=== PATIENT | female | born 1975 | race American Indian/Alaskan Native ===

== ENCOUNTER 2017-04-01 12:53 | Inpatient (IN) | payer MEDICARE, OTHER ==
[2017-04-01 14:06] LABS: Basophils % (Auto) 0.6 % (0.0-1.8); Hematocrit 29.1 % (30.3-42.9); Hemoglobin 9.4 gm/dl (10.1-14.3); Mean Corpuscular HGB Conc 32 % (30-34); Mean Corpuscular Hemoglobin 30 pg (28-32); Mean Corpuscular Volume 92 fl (79-97); Platelet Count 106 K/mm3 (140-440); Red Blood Count 3.18 M/mm3 (3.65-5.03); Red Cell Distribution Width 16.7 % (13.2-15.2); White Blood Count 4.5 K/mm3 (4.5-11.0)
[2017-04-01 14:26] LABS: Albumin 4.1 g/dL (3.9-5); Albumin/Globulin Ratio 1.5 %; Bilirubin,Total 0.4 mg/dL (0.1-1.2); Total Protein 6.8 g/dL (6.3-8.2)
[2017-04-01 14:27] LABS: Chloride 93.7 mmol/L (98-107)
[2017-04-01 14:30] LABS: Calcium 5.9 mg/dL (8.4-10.2); Potassium 6.2 mmol/L (3.6-5.0)
[2017-04-01] MEDS ORDERED: NORCO 5/325 PO ONE (15:54)
--- NOTE | 2017-04-01 16:10 | Emergency Department Report ---
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 Patient just did not feel like going to dialysis and states she's been having problems and just into the cold weather in [place] since moving from [place]. She complains of generalized weakness and fatigue. She also complains severe ongoing pain to right hand with necrosis to several fingers. This has been ongoing since she was admitted to [facility] in October and received vasopressors. Patient states that some of the discoloration of her fingers have actually improved since October but necrosis to others persist. Patient denies shortness of breath or chest pain. Sports Trainer : Dr. Banks - Related Data Allergies Allergy/AdvReac Type Severity Reaction Status Date / Time cefazolin sodium [From Anc] Allergy Anaphylaxis Verified 05/25/15 20:21 morphine Allergy Anaphylaxis Verified 05/25/15 20:21 contrast dye Allergy Anaphylaxis Uncoded 05/25/15 20:21 ED Review of Systems ROS: Stated complaint: FINGER PAIN/FALL Other details as noted in HPI Comment: All other systems reviewed and negative Other: Constitutional: No fevers chills Eyes: No eye pain visual changes ENT: No ear pain or throat pain Neck: Denies pain Respiratory: Denies cough wheezing, mild shortness of breath reported Cardiovascular: Denies chest pain, palpitations, syncope GI: Denies abdominal pain : Patient does not make urine Musculoskeletal: Chronic right hand pain Skin: Denies rash, lesions, erythema Neurologic: Denies headache, numbness, weakness Psychiatric: Denies suicidal ideation, hallucinations ED Past Medical Hx - Past Medical History Hx Hypertension: Yes Hx Renal Disease: Yes (Dialysis MWF) Hx Seizures: Yes - Surgical History Additional Surgical History: Tubal Ligation; L arm Fistula - Social History Smoking Status: Current Every Day Smoker Substance Use Type: Alcohol ED Physical Exam - General Limitations: No Limitations - Other Other exam information: General: No limitations, patient is alert in no acute distress Head exam: Atraumatic, normocephalic Eyes exam: Normal appearance ENT: Moist mucous membrane, normal oropharynx Neck exam: Normal inspection, full range of motion, no meningismus nontender Respiratory exam: Clear to auscultation bilateral, no wheezes, rales, crackles Cardiovascular: Normal rate and rhythm Abdomen: Soft, nondistended, and nontender, with normal bowel sounds, no rebound, or guarding Extremity: Limited range of motion of fingers of right hand. Distal tip necrosis to 3 and 4th finger. Tender to palpation. No warmth or erythema Back: Normal Inspection, full range of motion, no tenderness Neurologic: Alert, oriented x3, cranial nerves intact, no motor or sensory deficit Psychiatric: normal affect, normal mood Skin: Warm, dry, intact ED Course Vital Signs 04/01/17 13:30 Temperature 97.4 F L Pulse Rate 71 Respiratory 16 Rate Blood Pressure 194/107 O2 Sat by Pulse 100 Oximetry - Reevaluation(s) Reevaluation #1: 04/01/17 18:14 Patient given IM and by mouth narcotics for pain to her right hand so that IV assess could be obtained - Consultations Consultation #1: 04/01/17 16:[address] Lugo on-call lens dotter for Dr. Banks. We will arrange for emergent dialysis. ED Medical Decision Making - Lab Data Result diagrams: 04/01/17 13:48 04/01/17 13:48 Lab Results 04/01/17 04/01/17 Range/Units 13:48 13:48 WBC 4.5 (4.5-11.0) K/mm3 RBC 3.18 L (3.65-5.03) M/mm3 Hgb 9.4 L (10.1-14.3) gm/dl Hct 29.1 L (30.3-42.9) % MCV 92 (79-97) fl MCH 30 (28-32) pg MCHC 32 (30-34) % RDW 16.7 H (13.2-15.2) % Plt Count 106 L (140-440) K/mm3 Lymph % (Auto) 23.0 (13.4-35.0) % [place] % (Auto) 8.0 H (0.0-7.3) % Eos % (Auto) 0.0 (0.0-4.3) % Baso % (Auto) 0.6 (0.0-1.8) % Lymph # 1.0 L (1.2-5.4) K/mm3 [place] # 0.4 (0.0-0.8) K/mm3 Eos # 0.0 (0.0-0.4) K/mm3 Baso # 0.0 (0.0-0.1) K/mm3 Seg Neutrophils % 68.4 (40.0-70.0) % Seg Neutrophils # 3.1 (1.8-7.7) K/mm3 Sodium 140 (137-145) mmol/L Potassium 6.2 H* (3.6-5.0) mmol/L Chloride 93.7 L (98-107) mmol/L Carbon Dioxide 11 L (22-30) mmol/L Anion Gap 42 mmol/L BUN 179 H (7-17) mg/dL Creatinine 23.5 H (0.7-1.2) mg/dL Estimated GFR 2 ml/min BUN/Creatinine Ratio 8 % Glucose 81 (65-100) mg/dL Calcium 5.9 L* (8.4-10.2) mg/dL Total Bilirubin 0.40 (0.1-1.2) mg/dL AST 38 (5-40) units/L ALT 48 (7-56) units/L Alkaline Phosphatase 82 (35-129) units/L Total Protein 6.8 (6.3-8.2) g/dL Albumin 4.1 (3.9-5) g/dL Albumin/Globulin Ratio 1.5 % - EKG Data -: EKG Interpreted by Me EKG shows normal: sinus rhythm, axis (63), QRS complexes (89), ST-T waves (no ST elevation NM. No significant peaked T waves) Rate: normal (64) Critical Care Time: No Critical care attestation.: If time is entered above; I have spent that time in minutes in the direct care of this critically ill patient, excluding procedure time. ED Disposition Clinical Impression: ESRD needing dialysis, Hyperkalemia, Uremia, Dialysis patient, noncompliant, Ischemic necrosis of finger, Thrombocytopenia, Anemia Disposition: OP ADMIT IP TO THIS HOSP Is pt being admited?: Yes Condition: Stable Time of Disposition: 16:09 (taylor/hosp)
[2017-04-01] MEDS ORDERED: DILAUDID IM ONE (16:27)
[2017-04-01] MEDS ORDERED: ZOFRAN IM ONE (16:27)
[2017-04-01] MEDS ORDERED: DILAUDID ONE ×2 (16:32→19:17)
[2017-04-01] MEDS ORDERED: ALBURX 25% (ALBUMIN) IV PRN (16:39)
[2017-04-01] MEDS ORDERED: NACL 0.9% 100 ML IV PRN (16:39)
[2017-04-01] MEDS ORDERED: HEPARIN 10,000 UNITS/10 ML IV PRN (16:39)
[2017-04-01] MEDS ORDERED: PROCRIT IV PRN (16:39)
--- NOTE | 2017-04-01 19:01 | History and Physical Report ---
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 Patient just did not feel like going to dialysis and states she's been having problems and just into the cold weather in [place] since moving from [place]. She complains of generalized weakness and fatigue. She also complains severe ongoing pain to right hand with necrosis to several fingers. This has been ongoing since she was admitted to [facility] in October and received vasopressors. Patient states that some of the discoloration of her fingers have actually improved since October but necrosis to others persist. Patient denies shortness of breath or chest pain. Human Resources Coordinator : Dr. Banks Past Medical History Hx Hypertension: Yes Hx Renal Disease: Yes (Dialysis MWF) Hx Seizures: Yes Surgical History Additional Surgical History: Tubal Ligation; L arm Fistula Social History Smoking Status: Current Every Day Smoker Substance Use Type: Alcohol Review of Systems Stated complaint: FINGER PAIN/FALL Other details as noted in HPI Comment: All other systems reviewed and negative Other: Constitutional: No fevers chills Eyes: No eye pain visual changes ENT: No ear pain or throat pain Neck: Denies pain Respiratory: Denies cough wheezing, mild shortness of breath reported Cardiovascular: Denies chest pain, palpitations, syncope GI: Denies abdominal pain : Patient does not make urine Musculoskeletal: Chronic right hand pain Skin: Denies rash, lesions, erythema Neurologic: Denies headache, numbness, weakness Psychiatric: Denies suicidal ideation, hallucinations Medications and Allergies Allergies Allergy/AdvReac Type Severity Reaction Status Date / Time cefazolin sodium [From Anc] Allergy Anaphylaxis Verified 05/25/15 20:21 morphine Allergy Anaphylaxis Verified 05/25/15 20:21 contrast dye Allergy Anaphylaxis Uncoded 05/25/15 20:21 Active Meds: Active Medications Albumin Human (Alburx 25% (Albumin)) 25 gm IV DANIEL PRN PRN Reason: Hypotension Epoetin Onofre (Procrit) 10,000 unit IV DANIEL PRN PRN Reason: hemodialysis Heparin Sodium (Porcine) (Heparin 10,000 Units/10 Ml) 2,000 unit IV DANIEL PRN PRN Reason: hemodialysis Sodium Chloride (Nacl 0.9%) 100 mls @ 999 mls/hr IV DANIEL PRN PRN Reason: Hypotension Review of Systems All systems: negative Exam - Constitutional Vitals: Temp Pulse Resp BP Pulse Ox 97.4 F L 72 17 178/93 100 04/01/17 13:30 04/01/17 18:15 04/01/17 18:52 04/01/17 18:15 04/01/17 18:52 General appearance: Present: mild distress - Cardiovascular Heart rate: 80 Rhythm: regular - Extremities Extremities: abnormal (Rt Fingers ischemic changes) Peripheral Pulses: abnormal Results - Labs CBC & Chem 7: 04/02/17 05:58 04/02/17 05:58 Labs: Laboratory Last Values WBC 4.5 K/mm3 (4.5-11.0) 04/01/17 13:48 RBC 3.18 M/mm3 (3.65-5.03) L 04/01/17 13:48 Hgb 9.4 gm/dl (10.1-14.3) L 04/01/17 13:48 Hct 29.1 % (30.3-42.9) L 04/01/17 13:48 MCV 92 fl (79-97) 04/01/17 13:48 MCH 30 pg (28-32) 04/01/17 13:48 MCHC 32 % (30-34) 04/01/17 13:48 RDW 16.7 % (13.2-15.2) H 04/01/17 13:48 Plt Count 106 K/mm3 (140-440) L 04/01/17 13:48 Lymph % (Auto) 23.0 % (13.4-35.0) 04/01/17 13:48 [place] % (Auto) 8.0 % (0.0-7.3) H 04/01/17 13:48 Eos % (Auto) 0.0 % (0.0-4.3) 04/01/17 13:48 Baso % (Auto) 0.6 % (0.0-1.8) 04/01/17 13:48 Lymph # 1.0 K/mm3 (1.2-5.4) L 04/01/17 13:48 [place] # 0.4 K/mm3 (0.0-0.8) 04/01/17 13:48 Eos # 0.0 K/mm3 (0.0-0.4) 04/01/17 13:48 Baso # 0.0 K/mm3 (0.0-0.1) 04/01/17 13:48 Seg Neutrophils % 68.4 % (40.0-70.0) 04/01/17 13:48 Seg Neutrophils # 3.1 K/mm3 (1.8-7.7) 04/01/17 13:48 Sodium 140 mmol/L (137-145) 04/01/17 13:48 Potassium 6.2 mmol/L (3.6-5.0) H* 04/01/17 13:48 Chloride 93.7 mmol/L (98-107) L 04/01/17 13:48 Carbon Dioxide 11 mmol/L (22-30) L 04/01/17 13:48 Anion Gap 42 mmol/L 04/01/17 13:48 BUN 179 mg/dL (7-17) H 04/01/17 13:48 Creatinine 23.5 mg/dL (0.7-1.2) H 04/01/17 13:48 Estimated GFR 2 ml/min 04/01/17 13:48 BUN/Creatinine Ratio 8 % 04/01/17 13:48 Glucose 81 mg/dL (65-100) 04/01/17 13:48 Calcium 5.9 mg/dL (8.4-10.2) L* 04/01/17 13:48 Total Bilirubin 0.40 mg/dL (0.1-1.2) 04/01/17 13:48 AST 38 units/L (5-40) 04/01/17 13:48 ALT 48 units/L (7-56) 04/01/17 13:48 Alkaline Phosphatase 82 units/L (35-129) 04/01/17 13:48 Total Protein 6.8 g/dL (6.3-8.2) 04/01/17 13:48 Albumin 4.1 g/dL (3.9-5) 04/01/17 13:48 Albumin/Globulin Ratio 1.5 % 04/01/17 13:48 Short CBC 12/09/17 12/10/17 Range/Units 13:48 05:58 WBC 4.5 3.4 L (4.5-11.0) K/mm3 Hgb 9.4 L 8.8 L (10.1-14.3) gm/dl Hct 29.1 L 26.1 L (30.3-42.9) % Plt Count 106 L 110 L (140-440) K/mm3 BMP 04/01/17 04/02/17 13:48 05:58 Sodium 140 142 Potassium 6.2 H* 4.5 D Chloride 93.7 L 95.4 L Carbon Dioxide 11 L 23 D BUN 179 H 73 H Creatinine 23.5 H 12.6 H Glucose 81 75 Calcium 5.9 L* 6.9 L D Liver Function 04/01/17 04/02/17 Range/Units 13:48 05:58 Total Bilirubin 0.40 0.50 (0.1-1.2) mg/dL AST 38 27 (5-40) units/L ALT 48 42 (7-56) units/L Alkaline Phosphatase 82 78 (35-129) units/L Albumin 4.1 3.6 L (3.9-5) g/dL Assessment and Plan Advance Directives: Yes (Full code) VTE prophylaxis?: Chemical Plan of care discussed with patient/family: Yes - Patient Problems (1) Volume overload Current Visit: Yes Status: Acute Qualifiers: Hypervolemia type: unspecified Qualified Code(s): E87.70 - Fluid overload, unspecified Plan to address problem: Needs emergent HD Nephrology consulted Counselled about non compliance (2) Dialysis patient, noncompliant Current Visit: Yes Status: Chronic Plan to address problem: Counselled (3) ESRD needing dialysis Current Visit: Yes Status: Chronic Plan to address problem: HD TIW (4) Ischemic necrosis of finger Current Visit: Yes Status: Chronic Plan to address problem: Sec to vasopressors Pain control (5) HTN (hypertension) Current Visit: Yes Status: Chronic Qualifiers: Hypertension type: essential hypertension Qualified Code(s): I10 - Essential (primary) hypertension Plan to address problem: Add Amlodipine which is a vasodilator (6) Hyperkalemia Current Visit: Yes Status: Acute Plan to address problem: Corrected (7) DVT prophylaxis Current Visit: Yes Status: Acute Plan to address problem: on Heparin
[2017-04-01] MEDS ORDERED: ZOFRAN IV PRN (19:13)
[2017-04-01] MEDS ORDERED: TYLENOL PO PRN (19:13)
[2017-04-01] MEDS ORDERED: MILK OF MAGNESIA PO PRN (19:13)
[2017-04-01] MEDS ORDERED: DULCOLAX PR PRN (19:13)
[2017-04-01] MEDS ORDERED: PERCOCET 5/325 PO PRN (19:13)
[2017-04-01] MEDS ORDERED: NACL 0.9 (PRIMING MACHINE ONLY DIALYSIS) MC ONE (22:01)
--- NOTE | 2017-04-01 23:31 | Consultation ---
History of Present Illness - Reason for Consult Consult date: 04/01/17 end stage renal disease, hyperkalemia - History of Present Illness 41 yo female with End-stage renal disease on dialysis TTS who presented to the ED with generalized weakness. Patient reports nausea, metallic taste and SOB. She last dialyzed appx 11 days ago. She also complains of pain to right hand. She has ischemic changes of digits of right hand following pressors while hospitalized several months ago. She reports pain has been worsening. Past History Past Medical History: dialysis, ESRD, hypertension Past Surgical History: Other (LUIS A AVF; LUIS A AVG) Medications and Allergies Allergies Allergy/AdvReac Type Severity Reaction Status Date / Time cefazolin sodium [From [facility]] Allergy Anaphylaxis Verified 05/25/15 20:21 morphine Allergy Anaphylaxis Verified 05/25/15 20:21 contrast dye Allergy Anaphylaxis Uncoded 05/25/15 20:21 Active Meds: Active Medications Acetaminophen (Tylenol) 650 mg PO Q4H PRN PRN Reason: Pain MILD(1-3)/Fever >100.5/BAUER Albumin Human (Alburx 25% (Albumin)) 25 gm IV DANIEL PRN PRN Reason: Hypotension Bisacodyl (Dulcolax) 10 mg ME QDAY PRN PRN Reason: Constipation unrelieved by MOM Epoetin Onofre (Procrit) 10,000 unit IV DANIEL PRN PRN Reason: hemodialysis Famotidine (Pepcid) 10 mg IV BID ASHLEY Heparin Sodium (Porcine) (Heparin 10,000 Units/10 Ml) 2,000 unit IV DANIEL PRN PRN Reason: hemodialysis Hydromorphone HCl (Dilaudid) 1 mg IM Q3H PRN PRN Reason: Pain , Severe (7-10) Sodium Chloride (Nacl 0.9%) 100 mls @ 999 mls/hr IV DANIEL PRN PRN Reason: Hypotension Magnesium Hydroxide (Milk Of Magnesia) 30 ml PO Q4H PRN PRN Reason: Constipation Ondansetron HCl (Zofran) 4 mg IV Q8H PRN PRN Reason: N/V unrelieved by Reglan Last Admin: 04/01/17 22:40 Dose: 4 mg Oxycodone/Acetaminophen (Percocet 5/325) 1 tab PO Q6H PRN PRN Reason: Pain, Moderate (4-6) Review of Systems All systems: negative Cardiovascular: shortness of breath Musculoskeletal: other (pain in 1st and 2nd digit of right hand) Exam - Vital Signs Vital signs: Vital Signs Temp Pulse Resp BP Pulse Ox 97.4 F L 71 16 194/107 100 04/01/17 13:30 04/01/17 13:30 04/01/17 13:30 04/01/17 13:30 04/01/17 13:30 - General Appearance General appearance: well-developed, well-nourished EENT: ATNC Respiratory: Clear to Ascultation Heart: regular, S1S2 Gastrointestinal: Present: normal. Absent: tenderness, distended Integumentary: other (ischemic changes to 1st finger of right hand) Neurologic: alert and oriented x3 Musculoskeletal: Present: other (trace edema) Psychiatric: cooperative Results - Lab Results 04/01/17 13:48 04/01/17 13:48 Most recent lab results Calcium 5.9 mg/dL (8.4-10.2) L* 04/01/17 13:48 Assessment and Plan Impression: * End stage renal disease on hemodialysis * Uremia * Hyperkalemia * Ischemic changes to 1st and 2nd digit of right hand (following admission of pressors) * Hypertension * Anemia secondary to ESRD Plan: * Hemodialysis today - UF as tolerated * Assess for need for HD tomorrow * Consider vascular surgery consult * Epogen TIW prn * Renal diet
[2017-04-02] MEDS: ZOFRAN IV PRN ×3 (00:21→20:39)
[2017-04-02] MEDS: PEPCID IV SCH ×3 (00:21→22:35)
[2017-04-02] MEDS: DILAUDID IM PRN ×5 (03:11→18:45)
[2017-04-02 06:42] LABS: Basophils % (Auto) 0.6 % (0.0-1.8); Hematocrit 26.1 % (30.3-42.9); Hemoglobin 8.8 gm/dl (10.1-14.3); Mean Corpuscular HGB Conc 34 % (30-34); Mean Corpuscular Hemoglobin 31 pg (28-32); Mean Corpuscular Volume 90 fl (79-97); Platelet Count 110 K/mm3 (140-440); Red Blood Count 2.89 M/mm3 (3.65-5.03); Red Cell Distribution Width 16.3 % (13.2-15.2); White Blood Count 3.4 K/mm3 (4.5-11.0)
[2017-04-02 07:08] LABS: Albumin 3.6 g/dL (3.9-5); Albumin/Globulin Ratio 1.4 %; Bilirubin,Total 0.5 mg/dL (0.1-1.2); Calcium 6.9 mg/dL (8.4-10.2); Chloride 95.4 mmol/L (98-107); Potassium 4.5 mmol/L (3.6-5.0); Total Protein 6.2 g/dL (6.3-8.2)
--- NOTE | 2017-04-02 13:12 | Progress Note ---
Assessment and Plan Impression: * End stage renal disease on hemodialysis * Uremia * Hyperkalemia * Ischemic changes to 1st and 2nd digit of right hand (following admission of pressors) * Hypertension * Anemia secondary to ESRD Plan: * Hemodialysis tomorrow - no acute indication for dialysis today * UF as tolerated * Will consult vascular surgery * Epogen TIW prn * Renal diet Subjective Date of service: 04/02/17 Interval history: Patient c/p hand pain. Objective - Vital Signs Vital signs: Vital Signs - 12hr 04/02/17 04/02/17 04/02/17 03:11 03:19 04:46 Temperature Pulse Rate Respiratory 20 20 Rate Respiratory 20 Rate [ Generalized] Blood Pressure O2 Sat by Pulse Oximetry 04/02/17 04/02/17 04/02/17 05:20 08:15 08:17 Temperature 97.9 F 98.3 F Pulse Rate 69 64 Respiratory 18 20 18 Rate Respiratory Rate [ Generalized] Blood Pressure 170/90 186/86 O2 Sat by Pulse 100 100 Oximetry 04/02/17 04/02/17 04/02/17 08:47 12:07 12:14 Temperature Pulse Rate 66 Respiratory 14 22 Rate Respiratory Rate [ Generalized] Blood Pressure 156/72 O2 Sat by Pulse 100 Oximetry 04/02/17 12:18 Temperature 97.7 F Pulse Rate Respiratory 18 Rate Respiratory Rate [ Generalized] Blood Pressure O2 Sat by Pulse Oximetry - General Appearance General appearance: well-developed, well-nourished EENT: ATNC Respiratory: Present: Clear to Ascultation Cardiology: regular, S1S2 Gastrointestinal: normal, no tenderness, no distended Musculoskeletal: other (no edema; 1st and 2nd digit of right hand w/ ischemic changes) Psychiatric: cooperative - Lab 04/02/17 05:58 04/02/17 05:58 Most recent lab results Calcium 6.9 mg/dL (8.4-10.2) L D 04/02/17 05:58
--- NOTE | 2017-04-02 17:13 | Progress Note ---
Assessment and Plan (1) Volume overload Current Visit: Yes Status: Acute Qualifiers: Hypervolemia type: unspecified Qualified Code(s): E87.70 - Fluid overload, unspecified Plan to address problem: Had HD yesterday Nephrology consulted Counselled about non compliance (2) Dialysis patient, noncompliant Current Visit: Yes Status: Chronic Plan to address problem: Counselled. Nephrology consulted (3) ESRD needing dialysis Current Visit: Yes Status: Chronic Plan to address problem: HD T,Th,S (4) Ischemic necrosis of right 2nd and 3rd finger Current Visit: Yes Status: Chronic Plan to address problem: Sec to vasopressors while admittd to [facility] in11/17/16 - for sepsis and shock Pain control (5) HTN (hypertension) Current Visit: Yes Status: Chronic Qualifiers: Hypertension type: essential hypertension Qualified Code(s): I10 - Essential (primary) hypertension Plan to address problem: Add Amlodipine which is a vasodilator (6) Hyperkalemia Current Visit: Yes Status: Acute Plan to address problem: Corrected (7) Seizure d/o on Keppra (8) DVT prophylaxis Current Visit: Yes Status: Acute Plan to address problem: on Heparin Subjective Date of service: 04/02/17 Principal diagnosis: shortnessof breath from pul. Edema, syncopy and collapse Interval history: No more shortness of breath, still weak Objective - Constitutional Vitals: Vital Signs - 12hr 04/02/17 04/02/17 04/02/17 05:20 08:15 08:17 Temperature 97.9 F 98.3 F Pulse Rate 69 64 Respiratory 18 20 18 Rate Blood Pressure 170/90 186/86 O2 Sat by Pulse 100 100 Oximetry 04/02/17 04/02/17 04/02/17 08:47 12:07 12:14 Temperature Pulse Rate 66 Respiratory 14 22 Rate Blood Pressure 156/72 O2 Sat by Pulse 100 Oximetry 04/02/17 04/02/17 12:18 15:31 Temperature 97.7 F Pulse Rate Respiratory 18 16 Rate Blood Pressure O2 Sat by Pulse Oximetry General appearance: Present: no acute distress, well-nourished - EENT Eyes: PERRL, EOM intact - Neck Neck: supple, normal ROM - Respiratory Respiratory effort: normal Respiratory: bilateral: CTA - Cardiovascular Rhythm: regular Heart Sounds: Present: S1 & S2. Absent: gallop, rub Extremities: pulses intact, No edema, normal color, Full ROM - Gastrointestinal General gastrointestinal: Present: soft, non-tender, non-distended, normal bowel sounds - Genitourinary Female genitourinary: normal - Integumentary Integumentary: clear, warm, dry - Musculoskeletal Musculoskeletal: 1, strength equal bilaterally - Neurologic Neurologic: moves all extremities - Psychiatric Psychiatric: memory intact, appropriate mood/affect, intact judgment & insight - Labs CBC & Chem 7: 04/02/17 05:58 04/02/17 05:58 Labs: Abnormal lab results 04/02/17 04/02/17 Range/Units 05:58 05:58 WBC 3.4 L (4.5-11.0) K/mm3 RBC 2.89 L (3.65-5.03) M/mm3 Hgb 8.8 L (10.1-14.3) gm/dl Hct 26.1 L (30.3-42.9) % RDW 16.3 H (13.2-15.2) % Plt Count 110 L (140-440) K/mm3 [place] % (Auto) 8.1 H (0.0-7.3) % Lymph # 0.7 L (1.2-5.4) K/mm3 Seg Neutrophils % 71.0 H (40.0-70.0) % Chloride 95.4 L (98-107) mmol/L BUN 73 H (7-17) mg/dL Creatinine 12.6 H (0.7-1.2) mg/dL Calcium 6.9 L D (8.4-10.2) mg/dL Total Protein 6.2 L (6.3-8.2) g/dL Albumin 3.6 L (3.9-5) g/dL
[2017-04-02] MEDS: KEPPRA PO SCH (22:35)
[2017-04-02] MEDS: COREG PO SCH (22:35)
[2017-04-02] MEDS: DILAUDID IV PRN (22:36)
[2017-04-02] MEDS: NORVASC PO SCH (23:37)
[2017-04-03] MEDS ORDERED: APRESOLINE IV PRN (03:03)
[2017-04-03] MEDS: DILAUDID IV PRN ×5 (03:23→21:39)
[2017-04-03 06:51] LABS: Basophils % (Auto) 0.9 % (0.0-1.8); Hematocrit 28.6 % (30.3-42.9); Hemoglobin 9.6 gm/dl (10.1-14.3); Mean Corpuscular HGB Conc 33 % (30-34); Mean Corpuscular Hemoglobin 30 pg (28-32); Mean Corpuscular Volume 90 fl (79-97); Platelet Count 101 K/mm3 (140-440); Red Blood Count 3.19 M/mm3 (3.65-5.03); Red Cell Distribution Width 15.9 % (13.2-15.2); White Blood Count 3.5 K/mm3 (4.5-11.0)
[2017-04-03] MEDS: ZOFRAN IV PRN (06:51)
[2017-04-03 07:11] LABS: Albumin 3.8 g/dL (3.9-5); Albumin/Globulin Ratio 1.5 %; Bilirubin,Total 0.4 mg/dL (0.1-1.2); Calcium 6.6 mg/dL (8.4-10.2); Potassium 4.6 mmol/L (3.6-5.0); Total Protein 6.3 g/dL (6.3-8.2)
[2017-04-03] MEDS: KEPPRA PO SCH ×2 (11:16→21:39)
[2017-04-03] MEDS: COREG PO SCH ×2 (11:17→21:39)
[2017-04-03] MEDS: PEPCID IV SCH (11:17)
[2017-04-03] MEDS: NORVASC PO SCH (11:18)
--- NOTE | 2017-04-03 11:30 | Consultation ---
History of Present Illness - Reason for Consult Consult date: 04/03/17 right digit ischemia - History of Present Illness Patient with a history of multiple medical problems including end-stage renal disease on hemodialysis through a left upper arm AV graft. She has not had any access on the right side. She states that the digital ischemia to the distal phalanges of the second and third digits on her right hand began when she was at [facility] in October with sepsis and was given pressors. She is not followed up since that time. Time of examination, the patient has palpable radial pulses. Past History Past Medical History: dialysis, ESRD, hypertension Past Surgical History: Other (LUIS A AVF; LUIS A AVG) Medications and Allergies Allergies Allergy/AdvReac Type Severity Reaction Status Date / Time cefazolin sodium [From Anc] Allergy Anaphylaxis Verified 05/25/15 20:21 morphine Allergy Anaphylaxis Verified 05/25/15 20:21 contrast dye Allergy Anaphylaxis Uncoded 05/25/15 20:21 Home Medications Medication Instructions Recorded Confirmed Last Taken Type Calcium Acetate [Phoslo] 2,001 mg PO TID 04/02/17 04/02/17 Unknown History Carvedilol [Coreg] 25 mg PO BID 04/02/17 04/02/17 Unknown History Ranitidine HCl [Acid Threat Analyst] 75 mg PO QHS 04/02/17 04/02/17 Unknown History Topiramate [Topamax] 100 mg PO BID 04/02/17 04/02/17 Unknown History amLODIPine [Norvasc] 10 mg PO DAILY 04/02/17 04/02/17 Unknown History Active Meds: Active Medications Acetaminophen (Tylenol) 650 mg PO Q4H PRN PRN Reason: Pain MILD(1-3)/Fever >100.5/BAUER Albumin Human (Alburx 25% (Albumin)) 25 gm IV DANIEL PRN PRN Reason: Hypotension Amlodipine Besylate (Norvasc) 10 mg PO QDAY [facility] Last Admin: 04/03/17 11:18 Dose: 10 mg Bisacodyl (Dulcolax) 10 mg OR QDAY PRN PRN Reason: Constipation unrelieved by MOM Carvedilol (Coreg) 25 mg PO BID [facility] Last Admin: 04/03/17 11:17 Dose: 25 mg Epoetin Onofre (Procrit) 10,000 unit IV DANIEL PRN PRN Reason: hemodialysis Famotidine (Pepcid) 10 mg IV BID [facility] Last Admin: 04/03/17 11:17 Dose: 10 mg Heparin Sodium (Porcine) (Heparin 10,000 Units/10 Ml) 2,000 unit IV DANIEL PRN PRN Reason: hemodialysis Hydralazine HCl (Apresoline) 10 mg IV Q4HR PRN PRN Reason: Hypertension Last Admin: 04/03/17 03:24 Dose: 10 mg Hydromorphone HCl (Dilaudid) 1 mg IV Q4H PRN PRN Reason: Pain , Severe (7-10) Last Admin: 04/03/17 07:59 Dose: 1 mg Sodium Chloride (Nacl 0.9%) 100 mls @ 999 mls/hr IV DANIEL PRN PRN Reason: Hypotension Levetiracetam (Keppra) 500 mg PO BID [facility] Last Admin: 04/03/17 11:16 Dose: 500 mg Magnesium Hydroxide (Milk Of Magnesia) 30 ml PO Q4H PRN PRN Reason: Constipation Ondansetron HCl (Zofran) 4 mg IV Q4H PRN PRN Reason: N/V unrelieved by Reglan Last Admin: 04/03/17 06:51 Dose: 4 mg Oxycodone/Acetaminophen (Percocet 5/325) 1 tab PO Q6H PRN PRN Reason: Pain, Moderate (4-6) Review of Systems All systems: negative Exam - Constitutional Vitals: Temp Pulse Resp BP Pulse Ox 97.5 F L 72 20 145/72 99 04/03/17 05:18 04/03/17 05:18 04/03/17 05:18 04/03/17 05:18 04/03/17 05:18 General appearance: Present: no acute distress - EENT Eyes: Present: PERRL ENT: hearing intact - Neck Neck: Present: supple, normal ROM - Respiratory Respiratory effort: normal - Extremities Extremities: pulses intact Extremity abnormal: other (LUE AVG) - Abdominal General gastrointestinal: Present: deferred Female genitourinary: Present: deferred - Rectal Rectal Exam: deferred - Integumentary Integumentary: Present: clear - Musculoskeletal Musculoskeletal: right sided weakness (secondary to digital pain) - Psychiatric Psychiatric: appropriate mood/affect, cooperative Results - Labs CBC & Chem 7: 04/03/17 06:24 04/03/17 06:24 Labs: Abnormal lab results 04/03/17 04/03/17 Range/Units 06:24 06:24 WBC 3.5 L (4.5-11.0) K/mm3 RBC 3.19 L (3.65-5.03) M/mm3 Hgb 9.6 L (10.1-14.3) gm/dl Hct 28.6 L (30.3-42.9) % RDW 15.9 H (13.2-15.2) % Plt Count 101 L (140-440) K/mm3 [place] % (Auto) 11.1 H (0.0-7.3) % Lymph # 1.0 L (1.2-5.4) K/mm3 Chloride 96.0 L (98-107) mmol/L BUN 85 H (7-17) mg/dL Creatinine 15.5 H (0.7-1.2) mg/dL Calcium 6.6 L (8.4-10.2) mg/dL Albumin 3.8 L (3.9-5) g/dL Assessment and Plan Patient with ischemic changes to the distal phalanges of the second and third digits on her right hand. We'll further evaluate with arterial ultrasound. The patient will need local wound care.
--- NOTE | 2017-04-03 11:56 | Progress Note ---
Subjective Principal diagnosis: shortnessof breath from pul. Edema, syncopy and collapse Interval history: Patient was seen today for follow-up, on many renal related issues Patient currently denies having any symptoms of chest pain pressure shortness of breath she does complain of pain and tenderness on the fingertip she does not have any history suggestive of lupus or raynauds patient stated that fingers started changing color when she was put on vasopressors remotely Better aware about renal related issues Interdisciplinary notes were reviewed Vitals labs intake and output medications were reviewed from today Allergies: Reviewed Social history: Reviewed Family history: Reviewed Physical examination HEENT: Oral mucosa moist no pharyngeal erythema Neck: Supple no JVD Chest: Clear to auscultation no crackles rales or wheezes Heart: Regular rate and rhythm S1-S2 heard no S3-S4 Abdomen: Soft nontender no renal bruit no CVA tenderness no suprapubic fullness Extremity: Mild edema dry skin no peripheral cyanosis pulses palpable, fingertips are necrotic mostly involving second and third digit Neurological: Alert awake Musculoskeletal: No joint effusion noted Assessment and plan end-stage renal disease: Patient is currently on hemodialysis Monday and Monday anemia and end-stage renal disease: To monitor and follow erythropoietin with hemodialysis pancytopenia leg picture patient may benefit from hematology evaluation pls considered Ischemic hand patient is currently being followed by vascular discussed with Dr. Albarran Admitted with uremia and hyperkalemia currently doing much better Consider high-protein diet Monitor dialysis related labs Renal plan of care was discussed with patient Labs were discussed with patient explained and simple [place] does have good understanding off renal related issues, Will continue to follow and make recommendation from renal standpoint Objective - Vital Signs Vital signs: Vital Signs - 12hr 04/03/17 04/03/17 04/03/17 00:25 02:48 02:51 Temperature 97.6 F 98.4 F Pulse Rate 66 60 Respiratory 20 20 Rate Blood Pressure 194/89 170/86 O2 Sat by Pulse 98 100 Oximetry 04/03/17 04/03/17 04/03/17 03:23 03:24 04:04 Temperature Pulse Rate 60 70 Respiratory 20 Rate Blood Pressure 170/86 O2 Sat by Pulse Oximetry 04/03/17 05:18 Temperature 97.5 F L Pulse Rate 72 Respiratory 20 Rate Blood Pressure 145/72 O2 Sat by Pulse 99 Oximetry - Lab 04/03/17 06:24 04/03/17 06:24 Most recent lab results Calcium 6.6 mg/dL (8.4-10.2) L 04/03/17 06:24
--- NOTE | 2017-04-03 20:24 | Progress Note ---
Assessment and Plan (1) Volume overload Current Visit: Yes Status: Acute Qualifiers: Hypervolemia type: unspecified Qualified Code(s): E87.70 - Fluid overload, unspecified Plan to address problem: Had HD yesterday Nephrology consulted Counselled about non compliance (2) Dialysis patient, noncompliant Current Visit: Yes Status: Chronic Plan to address problem: Counselled. 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 Vascular surgical consult obtained. For arteial doppler. Local wound care (5) HTN (hypertension) Current Visit: Yes Status: Chronic Qualifiers: Hypertension type: essential hypertension Qualified Code(s): I10 - Essential (primary) hypertension Plan to address problem: Add Amlodipine (6) Hyperkalemia Current Visit: Yes Status: Acute Plan to address problem: Corrected (7) Seizure d/o on Keppra (8) DVT prophylaxis Current Visit: Yes Status: Acute Plan to address problem: on Heparin Subjective Date of service: 04/03/17 Principal diagnosis: shortnessof breath from pul. Edema, syncopy and collapse Interval history: No more shortness of breath, still weak and having pain in the Objective - Constitutional Vitals: Vital Signs - 12hr 04/03/17 04/03/17 04/03/17 12:17 12:59 17:19 Temperature 98.5 F 97.8 F Pulse Rate 77 59 L 59 L Respiratory 18 18 Rate Blood Pressure 154/80 137/71 [Left] O2 Sat by Pulse 100 100 Oximetry General appearance: Present: no acute distress, well-nourished - EENT Eyes: PERRL, EOM intact Ears: bilateral: normal - Neck Neck: supple, normal ROM - Respiratory Respiratory effort: normal Respiratory: bilateral: CTA - Cardiovascular Rhythm: regular Heart Sounds: Present: S1 & S2. Absent: gallop, rub Extremities: pulses intact, No edema, normal color, Full ROM - Gastrointestinal General gastrointestinal: Present: soft, non-tender, non-distended, normal bowel sounds - Integumentary Integumentary: clear, warm, dry - Musculoskeletal Musculoskeletal: 1, strength equal bilaterally - Neurologic Neurologic: moves all extremities - Psychiatric Psychiatric: memory intact, appropriate mood/affect, intact judgment & insight - Labs CBC & Chem 7: 04/03/17 06:24 04/03/17 06:24 Labs: Abnormal lab results 04/03/17 04/03/17 Range/Units 06:24 06:24 WBC 3.5 L (4.5-11.0) K/mm3 RBC 3.19 L (3.65-5.03) M/mm3 Hgb 9.6 L (10.1-14.3) gm/dl Hct 28.6 L (30.3-42.9) % RDW 15.9 H (13.2-15.2) % Plt Count 101 L (140-440) K/mm3 [place] % (Auto) 11.1 H (0.0-7.3) % Lymph # 1.0 L (1.2-5.4) K/mm3 Chloride 96.0 L (98-107) mmol/L BUN 85 H (7-17) mg/dL Creatinine 15.5 H (0.7-1.2) mg/dL Calcium 6.6 L (8.4-10.2) mg/dL Albumin 3.8 L (3.9-5) g/dL
[2017-04-03] MEDS: PEPCID PO SCH (21:39)
[2017-04-04] MEDS: DILAUDID IV PRN ×5 (01:43→22:37)
[2017-04-04 06:44] LABS: Basophils % (Auto) 0.7 % (0.0-1.8); Hematocrit 27.6 % (30.3-42.9); Hemoglobin 9.1 gm/dl (10.1-14.3); Mean Corpuscular HGB Conc 33 % (30-34); Mean Corpuscular Hemoglobin 30 pg (28-32); Mean Corpuscular Volume 90 fl (79-97); Platelet Count 102 K/mm3 (140-440); Red Blood Count 3.07 M/mm3 (3.65-5.03); Red Cell Distribution Width 15.9 % (13.2-15.2); White Blood Count 3.7 K/mm3 (4.5-11.0)
[2017-04-04 07:04] LABS: Albumin 3.8 g/dL (3.9-5); Albumin/Globulin Ratio 1.5 %; Bilirubin,Total 0.4 mg/dL (0.1-1.2); Chloride 91.9 mmol/L (98-107); Potassium 4.5 mmol/L (3.6-5.0); Total Protein 6.4 g/dL (6.3-8.2)
--- NOTE | 2017-04-04 08:06 | Vascular Lab Report ---
RIGHT UPPER EXTREMITY ARTERIAL DUPLEX: REASON FOR EXAM: Necrotic digits. COMMENTS ON THE RIGHT: Triphasic waveforms are seen proximally. Triphasic waveforms are seen distally. No significant velocity gradients are identified. No significant plaque is identified. Findings are consistent with normal perfusion. COMMENTS ON THE LEFT: Triphasic waveforms are seen distally. IMPRESSION: RIGHT: Essentially normal arterial flow.
--- NOTE | 2017-04-04 10:10 | Progress Note ---
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 Patient just did not feel like going to dialysis and states she's been having problems and just into the cold weather in [place] since moving from [place]. She complains of generalized weakness and fatigue. She also complains severe ongoing pain to right hand with necrosis to several fingers. This has been ongoing since she was admitted to [facility] in October and received vasopressors. Patient states that some of the discoloration of her fingers have actually improved since October but necrosis to others persist. Patient denies shortness of breath or chest pain. Hospice Art Therapist : Dr. Banks (1) Volume overload Current Visit: Yes Status: Acute Qualifiers: Hypervolemia type: unspecified Qualified Code(s): E87.70 - Fluid overload, unspecified Plan to address problem: Had HD yesterday Nephrology consulted-resume dialysis. Counseling provided to the patient about compliance. Counselled about non compliance (2) Dialysis patient, noncompliant Current Visit: Yes Status: Chronic Plan to address problem: Counselled. 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 Vascular surgical consult obtained. For arteial doppler. Local wound care Discussed with interventional radiologist (5) HTN (hypertension) Current Visit: Yes Status: Chronic Qualifiers: Hypertension type: essential hypertension Qualified Code(s): I10 - Essential (primary) hypertension Plan to address problem: Add Amlodipine (6) Hyperkalemia Current Visit: Yes Status: Acute Plan to address problem: Corrected (7) Seizure d/o on Keppra (8) av graft malfunction Plan for revision in the AM. (9)DVT prophylaxis Current Visit: Yes Status: Acute Plan to address problem: on Heparin History Interval history: Patient seen and examined in no acute distress still complains of finger necrosis. Discussed case with vascular dementia the patient also complained of left axillary pulsating lesion, which will be evaluated. Otherwise no fever nausea vomiting diarrhea. Hospitalist Physical - Physical exam Narrative exam: VITAL SIGNS: Reviewed. GENERAL: The patient appeared well nourished and normally developed. Vital signs as documented. HEAD: No signs of head trauma. EYES: Pupils are equal. Extraocular motions intact. EARS: Hearing grossly intact. MOUTH: Oropharynx is normal. NECK: No adenopathy, no JVD. CHEST: Chest with clear breath sounds bilaterally. No wheezes, rales, or rhonchi. CARDIAC: Regular rate and rhythm. S1 and S2, without murmurs, gallops, or rubs. VASCULAR: No Edema. Peripheral pulses normal and equal in all extremities. ABDOMEN: Soft, without detectable tenderness. No sign of distention. No rebound or guarding, and no masses palpated. Bowel Sounds normal. MUSCULOSKELETAL: Good range of motion of all major joints. Extremities without clubbing, or edema. Necrotic second and third finger of the right. With cyanosis. NEUROLOGIC EXAM: Alert and oriented x 3. No focal sensory or strength deficits. Speech normal. Follows commands. PSYCHIATRIC: Mood normal. SKIN: Second and third fingers on the right with black eschar, necrotic in nature, left upper arm AV graft appears thrombosed the patient has patent left upper arm graft with good chills. - Constitutional Vitals: Temp Pulse Resp BP Pulse Ox 98.6 F 60 20 141/72 100 04/04/17 08:31 04/04/17 08:31 04/04/17 08:31 04/04/17 08:31 04/04/17 08:31 General appearance: Present: no acute distress, well-nourished Results - Labs CBC & Chem 7: 04/05/17 04:00 04/05/17 04:00 Labs: Laboratory Last Values WBC 3.7 K/mm3 (4.5-11.0) L 04/04/17 06:02 RBC 3.07 M/mm3 (3.65-5.03) L 04/04/17 06:02 Hgb 9.1 gm/dl (10.1-14.3) L 04/04/17 06:02 Hct 27.6 % (30.3-42.9) L 04/04/17 06:02 MCV 90 fl (79-97) 04/04/17 06:02 MCH 30 pg (28-32) 04/04/17 06:02 MCHC 33 % (30-34) 04/04/17 06:02 RDW 15.9 % (13.2-15.2) H 04/04/17 06:02 Plt Count 102 K/mm3 (140-440) L 04/04/17 06:02 Lymph % (Auto) 33.9 % (13.4-35.0) 04/04/17 06:02 [place] % (Auto) 12.2 % (0.0-7.3) H 04/04/17 06:02 Eos % (Auto) 0.0 % (0.0-4.3) 04/04/17 06:02 Baso % (Auto) 0.7 % (0.0-1.8) 04/04/17 06:02 Lymph # 1.3 K/mm3 (1.2-5.4) 04/04/17 06:02 [place] # 0.4 K/mm3 (0.0-0.8) 04/04/17 06:02 Eos # 0.0 K/mm3 (0.0-0.4) 04/04/17 06:02 Baso # 0.0 K/mm3 (0.0-0.1) 04/04/17 06:02 Seg Neutrophils % 53.2 % (40.0-70.0) 04/04/17 06:02 Seg Neutrophils # 2.0 K/mm3 (1.8-7.7) 04/04/17 06:02 Sodium 139 mmol/L (137-145) 04/04/17 06:02 Potassium 4.5 mmol/L (3.6-5.0) 04/04/17 06:02 Chloride 91.9 mmol/L (98-107) L 04/04/17 06:02 Carbon Dioxide 21 mmol/L (22-30) L 04/04/17 06:02 Anion Gap 31 mmol/L 04/04/17 06:02 BUN 95 mg/dL (7-17) H 04/04/17 06:02 Creatinine 17.5 mg/dL (0.7-1.2) H 04/04/17 06:02 Estimated GFR 3 ml/min 04/04/17 06:02 BUN/Creatinine Ratio 5 % 04/04/17 06:02 Glucose 96 mg/dL (65-100) 04/04/17 06:02 Hemoglobin A1c 4.7 % (4-6) 04/01/17 13:48 Calcium 6.0 mg/dL (8.4-10.2) L 04/04/17 06:02 Total Bilirubin 0.40 mg/dL (0.1-1.2) 04/04/17 06:02 AST 28 units/L (5-40) 04/04/17 06:02 ALT 39 units/L (7-56) 04/04/17 06:02 Alkaline Phosphatase 78 units/L (35-129) 04/04/17 06:02 Total Protein 6.4 g/dL (6.3-8.2) 04/04/17 06:02 Albumin 3.8 g/dL (3.9-5) L 04/04/17 06:02 Albumin/Globulin Ratio 1.5 % 04/04/17 06:02 - Imaging and Cardiology Venous US: pending
[2017-04-04] MEDS: KEPPRA PO SCH ×2 (11:17→22:37)
[2017-04-04] MEDS: PEPCID PO SCH ×2 (11:17→22:37)
[2017-04-04] MEDS: COREG PO SCH ×2 (11:17→22:37)
[2017-04-04] MEDS: NORVASC PO SCH (11:17)
--- NOTE | 2017-04-04 13:53 | Progress Note ---
Assessment and Plan Arterial study to RUE suggest he has essentially normal flow. Recommend LWC for the digits to her right hand. She states the HD nurses are having difficulty sticking the upper portion of her LUE AVG, and reports discomfort in the axilla. Will schedule her for fistulagram for tomorrow. The R,B,and A were discussed. Pt has had previous fistulagrams and stated understanding and agrees to proceed. - Patient Problems (1) AV graft malfunction Current Visit: Yes Status: Acute Subjective Date of service: 04/04/17 Principal diagnosis: shortnessof breath from pul. Edema, syncopy and collapse Interval history: Pt awake and alert. She reports that the HD nurse has had difficulty accessing the avg in the upper portion of her left arm. She also complains of discomfort in the left axilla (new). She has a pulsatile mass that has been present for ~2 years. Objective - Constitutional Vitals: Vital Signs - 12hr 04/04/17 04/04/17 04/04/17 05:16 08:31 10:00 Temperature 98.1 F 98.6 F Pulse Rate 66 60 Respiratory 20 20 20 Rate Blood Pressure 157/79 141/72 O2 Sat by Pulse 100 100 Oximetry 04/04/17 04/04/17 11:17 12:12 Temperature Pulse Rate 60 Respiratory Rate Blood Pressure 141/72 128/67 O2 Sat by Pulse 100 Oximetry General appearance: Present: no acute distress - EENT Eyes: EOM intact ENT: hearing intact - Neck Neck: supple - Respiratory Respiratory effort: normal (unlabored at rest) Extremities: no ischemia, normal temperature, abnormal Extremity abnormal: black (dried blackened eschar to 2nd and 3rd fingers to the right hand. Thrombosed avf the left upper arm. Patent avg Left upper arm good thrill proximally and pulsatile distally. Moderate sized pulsatile mass in the L axilla. Scattered varicose veins over the chest) - Neurologic Neurologic: no focal deficits - Psychiatric Psychiatric: appropriate mood/affect, intact judgment & insight, cooperative - Labs CBC & Chem 7: 04/04/17 06:02 04/04/17 06:02 Labs: Abnormal lab results 04/04/17 04/04/17 Range/Units 06:02 06:02 WBC 3.7 L (4.5-11.0) K/mm3 RBC 3.07 L (3.65-5.03) M/mm3 Hgb 9.1 L (10.1-14.3) gm/dl Hct 27.6 L (30.3-42.9) % RDW 15.9 H (13.2-15.2) % Plt Count 102 L (140-440) K/mm3 [place] % (Auto) 12.2 H (0.0-7.3) % Chloride 91.9 L (98-107) mmol/L Carbon Dioxide 21 L (22-30) mmol/L BUN 95 H (7-17) mg/dL Creatinine 17.5 H (0.7-1.2) mg/dL Calcium 6.0 L (8.4-10.2) mg/dL Albumin 3.8 L (3.9-5) g/dL
--- NOTE | 2017-04-04 15:57 | Progress Note ---
Subjective Principal diagnosis: shortnessof breath from pul. Edema, syncopy and collapse Interval history: Patient was seen today for follow-up, on many renal related issues she still continues to complain of some pain in the digital ischemic area Interdisciplinary notes were reviewed Vitals labs intake and output medications were reviewed from today Allergies: Reviewed Social history: Reviewed Family history: Reviewed Physical examination HEENT: Oral mucosa moist no pharyngeal erythema Neck: Supple no JVD Chest: Clear to auscultation no crackles rales or wheezes Heart: Regular rate and rhythm S1-S2 heard no S3-S4 Abdomen: Soft nontender no renal bruit no CVA tenderness no suprapubic fullness Extremity: Mild edema dry skin no peripheral cyanosis pulses palpable, fingertips are necrotic mostly involving second and third digit Neurological: Alert awake Musculoskeletal: No joint effusion noted Assessment and plan end-stage renal disease: while in the hospital she will continue to dialyze on Monday schedule anemia and end-stage renal disease: To monitor and follow erythropoietin with hemodialysis pancytopenia leg picture patient may benefit from hematology evaluation pls considered Ischemic hand , arterial blood flow is good according to vascular surgery notes hyperkalemia: Pleasant upon admission currently improved Admitted with uremia and hyperkalemia currently doing much better Consider high-protein diet, due to dialysis status Monitor dialysis related labs including phosphorus and PTH periodically Renal plan of care was discussed with patient Labs were discussed with patient explained and simple [place] does have good understanding off renal related issues, Will continue to follow and make recommendation from renal standpoint Objective - Vital Signs Vital signs: Vital Signs - 12hr 04/04/17 04/04/17 04/04/17 05:16 08:31 10:00 Temperature 98.1 F 98.6 F Pulse Rate 66 60 Respiratory 20 20 20 Rate Blood Pressure 157/79 141/72 O2 Sat by Pulse 100 100 Oximetry 04/04/17 04/04/17 11:17 12:12 Temperature Pulse Rate 60 Respiratory Rate Blood Pressure 141/72 128/67 O2 Sat by Pulse 100 Oximetry - Lab 04/04/17 06:02 04/04/17 06:02 Most recent lab results Calcium 6.0 mg/dL (8.4-10.2) L 04/04/17 06:02
[2017-04-04] MEDS ORDERED: NACL 0.9 (PRIMING MACHINE ONLY DIALYSIS) MC ONE (18:29)
[2017-04-05] MEDS: DILAUDID IV PRN ×2 (02:57→07:09)
[2017-04-05 06:17] LABS: Hemoglobin 9.3 gm/dl (10.1-14.3); Mean Corpuscular HGB Conc 34 % (30-34); Mean Corpuscular Hemoglobin 31 pg (28-32); Mean Corpuscular Volume 89 fl (79-97); Platelet Count 96 K/mm3 (140-440); Red Blood Count 3.04 M/mm3 (3.65-5.03); Red Cell Distribution Width 15.6 % (13.2-15.2); White Blood Count 2.7 K/mm3 (4.5-11.0)
[2017-04-05 06:44] LABS: Albumin 3.5 g/dL (3.9-5); Albumin/Globulin Ratio 1.5 %; Bilirubin,Total 0.4 mg/dL (0.1-1.2); Calcium 7.7 mg/dL (8.4-10.2); Chloride 94.3 mmol/L (98-107); Potassium 3.9 mmol/L (3.6-5.0); Total Protein 5.9 g/dL (6.3-8.2)
[2017-04-05 07:18] LABS: Blastocytes % (Manual) 0 %; Eosinophils % (Manual) 0 % (0.0-4.3)
[2017-04-05 07:19] LABS: Anisocytosis 1+; Elliptocytes Few; Ovalocytes 1+
[2017-04-05 07:20] LABS: Diff Status Complete; Microcytosis 1+; Platelet Estimate Appears Decreased; Stomatocytes 1+
[2017-04-05] MEDS ORDERED: BENADRYL PO NR (08:00)
[2017-04-05] MEDS ORDERED: ANCEF/STERILE WATER 2 GM/20 ML 2 GM/20 ML SYRINGE IV NR (08:00)
[2017-04-05 08:02] VITALS: BP 170/80
[2017-04-05] MEDS ORDERED: HEPARIN/NS 5000 UNIT/500ML(CATH LAB) 1,000 ML IR ONE (08:27)
[2017-04-05] MEDS ORDERED: HEPARIN 10,000 UNITS/10 ML ONE (08:27)
[2017-04-05] MEDS ORDERED: BENADRYL ONE (08:28)
[2017-04-05] MEDS ORDERED: XYLOCAINE 2% INFILTRATI ONE (08:28)
[2017-04-05] MEDS ORDERED: NACL 0.9% 250ML 250 ML ONE (08:28)
[2017-04-05] MEDS ORDERED: VERSED ONE (08:42)
[2017-04-05] MEDS: SUBLIMAZE ONE ×2 (08:58→09:45)
--- NOTE | 2017-04-05 09:40 | Progress Note ---
Subjective Principal diagnosis: shortnessof breath from pul. Edema, syncopy and collapse Interval history: Patient was seen today for follow-up, on many renal related issues Patient did receive hemodialysis treatment yesterday and tolerated fairly well Vitals labs intake and output medications were reviewed from today Allergies: Reviewed Social history: Reviewed Family history: Reviewed Physical examination HEENT: Oral mucosa moist no pharyngeal erythema Neck: Supple no JVD Chest: Clear to auscultation no crackles rales or wheezes Heart: Regular rate and rhythm S1-S2 heard no S3-S4 Abdomen: Soft nontender no renal bruit no CVA tenderness no suprapubic fullness Extremity: Mild edema dry skin no peripheral cyanosis pulses palpable, fingertips are necrotic mostly involving second and third digit Neurological: Alert awake Musculoskeletal: No joint effusion noted Assessment and plan end-stage renal disease: while in the hospital she will continue to dialyze on Monday schedule anemia and end-stage renal disease: To monitor and follow erythropoietin with hemodialysis pancytopenia leg picture patient may benefit from hematology evaluation pls considered, as this is important for her Ischemic hand , arterial blood flow is good according to vascular surgery notes hyperkalemia: Pleasant upon admission currently improved Admitted with uremia and hyperkalemia currently doing much better counseled and educated already Consider high-protein diet, due to dialysis status Monitor dialysis related labs including phosphorus and PTH periodically And has received adequate education regarding end-stage renal disease care Will continue to follow and make recommendation from renal standpoint Objective - Vital Signs Vital signs: Vital Signs - 12hr 04/04/17 04/04/17 04/04/17 22:37 23:27 23:32 Temperature 98.6 F Pulse Rate 69 70 Respiratory 18 Rate Blood Pressure 194/87 Blood Pressure 192/92 [Left] Blood Pressure [Right] O2 Sat by Pulse 100 100 Oximetry 04/04/17 04/05/17 04/05/17 23:46 02:55 04:12 Temperature 98.7 F Pulse Rate 63 65 Respiratory 18 Rate Blood Pressure 167/85 Blood Pressure 164/77 [Left] Blood Pressure [Right] O2 Sat by Pulse 96 99 Oximetry 04/05/17 07:58 Temperature 97.9 F Pulse Rate 57 L Respiratory 16 Rate Blood Pressure Blood Pressure [Left] Blood Pressure 170/80 [Right] O2 Sat by Pulse 99 Oximetry - Lab 04/05/17 04:00 04/05/17 04:00 Most recent lab results Calcium 7.7 mg/dL (8.4-10.2) L D 04/05/17 04:00
[2017-04-05] MEDS: COREG PO SCH (10:13)
[2017-04-05] MEDS: KEPPRA PO SCH (10:13)
[2017-04-05] MEDS: PEPCID PO SCH (10:14)
[2017-04-05] MEDS: NORVASC PO SCH (10:14)
--- NOTE | 2017-04-05 10:26 | Post Operative Note ---
Pre-op diagnosis: esrd Post-op diagnosis: same Findings: Venous anastamotic and central venous stenoses Procedure: fistualgram and balloon angioplasty Anesthesia: local Surgeon: CRYSTAL JORGE Estimated blood loss: none Pathology: none Condition: stable Disposition: floor
--- NOTE | 2017-04-05 11:53 | Discharge Summary ---
Providers - Providers Date of Admission: 04/01/17 18:45 Attending physician: JULIA ALEX MD 04/01/17 16:45 Consult to Physician [CONS] Urgent Consulting Provider: DOROTA GÓMEZ Reason For Exam: esrd needing dialysis Notified:: maren 04/02/17 14:56 Consult to Physician [CONS] Routine Consulting Provider: MOISES JUNIOR Reason For Exam: Ischemic digits of right hand Place consult to:: Dr. 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 Patient just did not feel like going to dialysis and states she's been having problems and just into the cold weather in [place] since moving from [place]. She complains of generalized weakness and fatigue. She also complains severe ongoing pain to right hand with necrosis to several fingers. This has been ongoing since she was admitted to [facility] in October and received vasopressors. Patient states that some of the discoloration of her fingers have actually improved since October but necrosis to others persist. Patient denies shortness of breath or chest pain. Switch Cleaner : Dr. Banks. Patient on admission was started on dialysis with counselor noncompliance provided. The patient was also seen by vascular recommendation that ischemic necrosis noted on the second third finger of the right will likely self medicate. The patient did have a complaint of pulsating axillary lesion that has been ongoing for 2 years and proceeded to have a fistulogram with interventional radiologist. I will follow-up with them for further evaluation. We did advise some pain medication and also very minimal nitroglycerin cream on fingers to assist with pain control. I do recommend close follow-up with wood preserving plant laborer compliance with dialysis and also follow-up with vascular physicians. She is clinically stable at this point for discharge. 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 GENERAL: The patient appeared well nourished and normally developed. Vital signs as documented. HEAD: No signs of head trauma. EYES: Pupils are equal. Extraocular motions intact. EARS: Hearing grossly intact. MOUTH: Oropharynx is normal. NECK: No adenopathy, no JVD. CHEST: Chest with clear breath sounds bilaterally. No wheezes, rales, or rhonchi. CARDIAC: Regular rate and rhythm. S1 and S2, without murmurs, gallops, or rubs. VASCULAR: No Edema. Peripheral pulses normal and equal in all extremities. ABDOMEN: Soft, without detectable tenderness. No sign of distention. No rebound or guarding, and no masses palpated. Bowel Sounds normal. MUSCULOSKELETAL: Good range of motion of all major joints. Extremities without clubbing, or edema. Necrotic second and third finger of the right. With cyanosis. NEUROLOGIC EXAM: Alert and oriented x 3. No focal sensory or strength deficits. Speech normal. Follows commands. PSYCHIATRIC: Mood normal. SKIN: Second and third fingers on the right with black eschar, necrotic in nature, left upper arm AV graft appears thrombosed the patient has patent left upper arm graft with good chills. - Constitutional Vitals: Temp Pulse Resp BP Pulse Ox 97.9 F 57 L 16 170/80 99 04/05/17 07:58 04/05/17 07:58 04/05/17 07:58 04/05/17 07:58 04/05/17 07:58 Plan Activity: advance as tolerated Diet: renal Special Instructions: restrict fluid intake to, record daily weights, record daily BP diary Follow up with: BON ARMENTA MD [Primary Care Provider] - 7 Days JOSE LUIS LONG MD [Staff Physician] - 7 Days CRYSTAL JORGE MD [Staff Physician] - 7 Days Prescriptions: levETIRAcetam [Keppra TAB] 500 mg PO BID #60 tablet Nitroglycerin [Nitro-Bid] 30 gm TD DAILY 5 Days oint...g. oxyCODONE /ACETAMINOPHEN [Percocet 5/325 mg] 1 tab PO Q6H PRN #14 tablet PRN Reason: Pain, Moderate (4-6)
--- NOTE | 2017-04-05 13:30 | Operative Report ---
Operative Report Operative Report: Procedure: 1. Ultrasound-guided access of a left upper extremity AV graft. 2. Sonographic evaluation of a left upper extremity AV graft 3. Angiography of the left upper extremity AV graft 4. Central venography 5. Balloon angioplasty of the left brachiocephalic vein 6. Balloon angioplasty of the venous anastomosis 7. Balloon angioplasty of the left upper extremity graft 8. Reflux arteriography of the left brachial artery Date of Procedure: 04/05/2017 History/Indication: 41-year-old female with a left upper extremity AV graft reported to be difficult to access during dialysis Physician: Consuelo Bajwa MD Technique/Procedural Details: The patient was placed in the supine position and prepped and draped in the usual sterile fashion. A timeout was performed. Local anesthetic was administered. Under continuous ultrasound guidance, a 21-gauge needle was used to access the left upper extremity AV graft towards the central circulation. A 6 Greenlandic sheath was placed. Through the sheath, a Ty wire and 4 Greenlandic vertebral catheter were advanced centrally. Central venography was performed. The vertebral catheter was withdrawn peripherally, and angiography of the graft was performed. Balloon angioplasty of the left brachiocephalic vein and an axillary vein stent was performed with a 1 cm balloon. Angioplasty of the venous anastomosis and multiple sites within the graft was performed with an 8 mm balloon. With the 8 mm balloon inflated near the anastomosis, reflux arteriography was performed in multiple projections. All wires and catheters were withdrawn. A 3-0 Vicryl suture was used to achieve hemostasis. Discussion: A 30-40% region of narrowing in the left brachiocephalic vein was treated with angioplasty, but was somewhat refractory to treatment. Multiple areas within a pre-existing axillary vein stent for also treated with angioplasty, and these were successfully opened. There is size discrepancy between the graft and the axillary vein at the anastomosis. This was subjective to gentle angioplasty, but ultimately there was no difference in the angiographic appearance after treatment. Several additional areas of mild irregularity were successfully treated within the graft itself. Reflux arteriography demonstrates a patent anastomosis. However, the brachial artery just proximal to the anastomosis is very irregular in appearance. More proximal to the irregular appearing portion, there is an outpouching of the brachial artery. This may be a previously ligated fistula, but the patient's surgical history is currently unavailable, and she herself is unsure what has been done. Dozens of surgical clips in the left upper arm would indicate that she has undergone multiple revisions. This is also evidenced by the fact that there is a large, clotted fistula adjacent to the currently used graft. Ultrasound evaluation of a left axillary mass demonstrates no color flow within the hypoechoic ovoid mass. However, it abuts the axillary artery, with no evidence of direct flow into the mass. There was a palpable thrill at the conclusion of the case. Specimen: None EBL: <5 cc
--- NOTE | 2017-04-07 11:48 | Vascular Lab Report ---
MISCELLANEOUS VESSEL IDENTIFICATION: The arteriovenous access was identified in the left arm and under real-time ultrasound guidance was cannulated. IMPRESSION: Successful ultrasound guided cannulation of the arteriovenous access site.
== END 2017-04-05 17:30 | disposition home or self-care (01) | DRG 252 ==
LOC: ED 12:53 → 4A 18:45
PROVIDERS: ADMIT Internal Medicine; ATTEND Internal Medicine
PROC: 5A1D70Z Performance of Urinary Filtration, Intermittent, Less than 6 Hours Per Day (ICD-10-PCS; 2017-04-01)
PROC: 5A1D70Z Performance of Urinary Filtration, Intermittent, Less than 6 Hours Per Day (ICD-10-PCS; 2017-04-04)
PROC: 05743ZZ Dilation of Left Innominate Vein, Percutaneous Approach (ICD-10-PCS; principal; 2017-04-05)
PROC: 057Y3ZZ Dilation of Upper Vein, Percutaneous Approach (ICD-10-PCS; 2017-04-05)
PROC: 05783ZZ Dilation of Left Axillary Vein, Percutaneous Approach (ICD-10-PCS; 2017-04-05)
PROC: B51N1ZZ Fluoroscopy of Left Upper Extremity Veins using Low Osmolar Contrast (ICD-10-PCS; 2017-04-05)
DX: T82.510A Breakdown (mechanical) of surgically created arteriovenous fistula, initial encounter (principal); N18.6 End stage renal disease; I12.0 Hypertensive chronic kidney disease with stage 5 chronic kidney disease or end stage renal disease; I96 Gangrene, not elsewhere classified; E87.5 Hyperkalemia; F17.210 Nicotine dependence, cigarettes, uncomplicated; D69.6 Thrombocytopenia, unspecified; D63.1 Anemia in chronic kidney disease; G40.909 Epilepsy, unspecified, not intractable, without status epilepticus; Y84.8 Other medical procedures as the cause of abnormal reaction of the patient, or of later complication, without mention of misadventure at the time of the procedure; Y92.89 Other specified places as the place of occurrence of the external cause; Z88.5 Allergy status to narcotic agent; Z88.8 Allergy status to other drugs, medicaments and biological substances; Z99.2 Dependence on renal dialysis; Z98.51 Tubal ligation status
CPT/HCPCS: 36415; 36902; 76937; 80053; 83036; 85007; 85025; 93005; 93010; 96372; 99406; C1725; C1751; C1894; J0360; J0885; J1170; J1200; J1644; J2250; J2405; J2930; J3010; J7030; J7050; Q9967

== ENCOUNTER 2017-05-29 12:47 | Emergency (ER) | payer MEDICARE ==
[2017-05-29 15:49] VITALS: BP 128/92
--- NOTE | 2017-05-29 16:30 | Emergency Department Report ---
Chief Complaint: Extremity Problem,Nontraumatic Stated Complaint: PORT CLOGGED Time Seen by Provider: 05/29/17 16:14 - HPI History of Present Illness: The patient is a 41-year-old female presents for evaluation of left arm pain and swelling secondary to a suspected dialysis catheter clot. She has also experienced some chest fullness secondary to suspected fluid overload. She shares that she was not able to receive dialysis on Monday due to the clot. Her arm pain has been present and progressive since Monday. - Exam Vital Signs: Vital Signs 05/29/17 15:35 Temperature 98.2 F Pulse Rate 73 Respiratory 20 Rate Blood Pressure 128/92 O2 Sat by Pulse 100 Oximetry MSE screening note: Focused history and physical exam performed. Due to findings the following was ordered: Doppler of the left arm is ordered. Labs and imaging to rule out the for emergent dialysis are ordered as well as the patient is experiencing chest fullness and missed last scheduled dialysis appointment. ED Disposition for MSE Condition: Stable
[2017-05-29 16:47] LABS: Basophils % (Auto) 0.8 % (0.0-1.8); Hematocrit 35.4 % (30.3-42.9); Hemoglobin 11.9 gm/dl (10.1-14.3); Lymphocytes # (Auto) 1.4 K/mm3 (1.2-5.4); Lymphocytes % (Auto) 25.5 % (13.4-35.0); Mean Corpuscular HGB Conc 34 % (30-34); Mean Corpuscular Hemoglobin 33 pg (28-32); Mean Corpuscular Volume 97 fl (79-97); Monocytes # (Auto) 0.4 K/mm3 (0.0-0.8); Monocytes % (Auto) 6.8 % (0.0-7.3); Platelet Count 138 K/mm3 (140-440); Red Blood Count 3.66 M/mm3 (3.65-5.03); Red Cell Distribution Width 15.8 % (13.2-15.2)
[2017-05-29 17:08] LABS: Albumin 3.8 g/dL (3.9-5); Calcium 7.8 mg/dL (8.4-10.2)
--- NOTE | 2017-05-31 13:26 | Vascular Lab Report ---
LEFT UPPER EXTREMITY VENOUS DUPLEX: REASON FOR EXAM: Pain and swelling of the left upper extremity COMMENTS ON THE LEFT: All arm veins visualized are freely compressible without evidence of internal echogenicity. The subclavian and internal jugular veins are free of thrombus. Flow is spontaneous and phasic throughout. Also noted is the presence of an arteriovenous graft which appears to go from the antecubital area for the subclavian area. This graft appears to be thrombosed. There also appears to be a thrombosed fistula in the upper arm in the medial side. COMMENTS ON THE RIGHT: A limited study of the jugular and subclavian veins shows no evidence of thrombus. IMPRESSION: No evidence of acute or chronic deep venous thrombosis in the left upper extremity. There appears to be a thrombosed AV graft in the left arm from the antecubital fossa to the subclavian area. There appear to be a thrombosed arteriovenous fistula in the mid upper arm on the medial side.
[2017-05-31] MEDS ORDERED: TRIPLE ANTIBIOTIC TP ONE (18:19)
== END 2017-05-30 20:30 | disposition left against medical advice (07) ==
LOC: ED 12:47
DX: T82.49XA Other complication of vascular dialysis catheter, initial encounter (principal); Z53.21 Procedure and treatment not carried out due to patient leaving prior to being seen by health care provider
CPT/HCPCS: 36415; 80053; 83880; 84703; 85025; A6250

== ENCOUNTER 2017-05-30 14:36 | Inpatient (IN) | payer MEDICARE ==
[2017-05-30] MEDS ORDERED: XYLOCAINE 2% INFILTRATI ONE (16:10)
[2017-05-30] MEDS ORDERED: HEPARIN/NS 5000 UNIT/500ML(CATH LAB) 1,000 ML IR ONE (16:10)
[2017-05-30] MEDS ORDERED: ANCEF/STERILE WATER 2 GM/20 ML 0 GM/0 ML SYRINGE IV ONE (16:11)
[2017-05-30] MEDS ORDERED: BENADRYL ONE (16:11)
[2017-05-30] MEDS ORDERED: NACL 0.9% 100 ML ONE (16:20)
[2017-05-30] MEDS ORDERED: SUBLIMAZE ONE (16:36)
[2017-05-30] MEDS ORDERED: VERSED ONE (16:36)
[2017-05-30] MEDS: HEPARIN 10,000 UNITS/10 ML ONE ×2 (16:46→16:47)
[2017-05-30] MEDS ORDERED: HEPARIN/NS 5000 UNIT/500ML(CATH LAB) 500 ML IR ONE (16:52)
--- NOTE | 2017-05-30 16:55 | Event Note ---
Date: 05/30/17 The patient arrived here for a left upper extremity AV graft declotting procedure. However, her preprocedural potassium was 7.4. I conveyed this to the admitting hospitalist. We agreed to place a Vas-Cath today, dialyzed the patient, and have her undergo the declot procedure tomorrow. I conveyed this to the patient who is agreeable.
--- NOTE | 2017-05-30 16:57 | Operative Report ---
Operative Report Operative Report: Procedure: 1. Right internal jugular non-tunneled dialysis catheter placement 2. Ultrasound guided puncture of the right external jugular vein. Date: 05/30/2017 Physician: Consuelo Bajwa MD Indication: 41 year old female with renal failure, in need of dialysis. Technique: The patient was placed in the supine position and prepped and draped in the usual sterile fashion. A timeout was performed. Local anesthetic was administered. Under direct ultrasound guidance, the right external jugular vein was accessed with a 21-gauge needle. This was exchanged over a mandrel wire for a 4 Azerbaijani exchange dilator. Via the exchange dilator, and 035 wire was advanced into the IVC. After serial tissue dilation, the dialysis catheter was advanced, until the tip was in the right atrium. Vacuum aspiration and flushing was performed. Each lumen was instilled with heparin. The catheter was secured to the skin with 2-0 Ethilon suture. Sterile dressings were placed, and the patient was transported from the procedure area in stable condition. Findings: 1. Ultrasound demonstrates a patent and compressible right external jugular vein. The right internal jugular vein is thrombosed and diminutive just before its confluence with the subclavian vein. 2. There is successful placement of a 15cm non-tunneled dialysis catheter via the REJ vein. 3. Each lumen flushes and aspirates briskly. 4. Positioning of the catheter tip within the right atrium is confirmed by fluoroscopy. The catheter is ready for use.
--- NOTE | 2017-05-30 17:39 | Consultation ---
History of Present Illness Consult date: 05/30/17 Chief complaint: lump left axilla - History of present illness History of present illness: 41 yo female with a PMHx of ESRD on HD, seizures, hx of failed Kidney tx presents to IR suite for evaluation of clotted LUE AVF. The patient has hx of several declotting procedures in the past. The patient has been c/o a lump in her right axilla which has been present for the last 4 years. She states is started out small and then began to grow. It has been stable in size for the last 2 years. She states it has started to become more bothersome and tender at times. She denies recent illness. She moved here from [place] several years ago and has not had cancer screening since then. The last mammogram was at least 3 years ago. She denies f/c, cp, sob, n/v, abd pain. Past History Past Medical History: hypertension, renal failure, seizures Past Surgical History: cholecystectomy, Other (kidney transplant, total parathyroidectomy, vascaths and permcaths, LUE AVF, IR declotting procedures for AVF) Social history: denies: smoking, alcohol abuse, IV drug use Family history: no significant family history Medications and Allergies Allergies Allergy/AdvReac Type Severity Reaction Status Date / Time cefazolin sodium [From [facility]] Allergy Hives Verified 05/30/17 15:40 morphine Allergy Hives Verified 05/30/17 15:40 contrast dye Allergy Anaphylaxis Uncoded 05/25/15 20:21 Home Medications Medication Instructions Recorded Confirmed Last Taken Type Calcium Acetate [Phoslo] 2,001 mg PO TID 04/02/17 04/02/17 Unknown History Carvedilol [Coreg] 25 mg PO BID 04/02/17 04/02/17 Unknown History Ranitidine HCl [Acid Making Line Worker] 75 mg PO QHS 04/02/17 04/02/17 Unknown History Topiramate [Topamax] 100 mg PO BID 04/02/17 04/02/17 Unknown History amLODIPine [Norvasc] 10 mg PO DAILY 04/02/17 04/02/17 Unknown History Nitroglycerin [Nitro-Bid] 30 gm TD DAILY 5 Days oint...g. 04/05/17 Unknown Rx levETIRAcetam [Keppra TAB] 500 mg PO BID #60 tablet 04/05/17 Unknown Rx oxyCODONE /ACETAMINOPHEN [Percocet 1 tab PO Q6H PRN #14 tablet 04/05/17 Unknown Rx 5/325 mg] Review of Systems All systems: negative (10 point ROS performed and negative except for that listed in HPI) Exam Vital Signs Temp Pulse Resp BP Pulse Ox 97.7 F 56 L 18 161/81 97 05/30/17 16:23 05/30/17 16:23 05/30/17 16:23 05/30/17 16:23 05/30/17 16:23 Narrative exam: Gen: AAOx3. NAD Ent: no scleral icterus or conjunctival pallor CV: S1, S2+. no m/r/g Resp: No audible wheezes Breast: No masses palpable. No axillary LAD on right. Large approximately 4 cm firm, mobile mass in left axilla, mildly tender, no skin changes or erythema. No drainage. Abd: soft, NT, ND. well healed surgical scars Ext: LUE AVF Results - Labs 05/30/17 15:40 Abnormal lab results 05/30/17 Range/Units 15:40 Potassium 7.4 H* D (3.6-5.0) mmol/L Diabetes panel 05/30/17 Range/Units 15:40 Potassium 7.4 H* D (3.6-5.0) mmol/L Pituitary panel 05/30/17 Range/Units 15:40 Potassium 7.4 H* D (3.6-5.0) mmol/L Adrenal panel 05/30/17 Range/Units 15:40 Potassium 7.4 H* D (3.6-5.0) mmol/L - Imaging Additional studies: Vascular imaging reviewed with Dr. Bajwa (IR). The patient has large mass abutting axillary vein/artery in left axilla, no color flow seen. Assessment and Plan 41 yo F with left axillary mass, ESRD on HD, hyperkalemia 1. discussed with Dr. Bajwa, will arrange for core needle biopsy with imaging guidance as outpatient 2. patient to have vascath placed for hyperkalemia and undergo HD 3. patient may follow up with me in surgery clinic after biopsy to follow up pathology and arrange further w/u if needed. The patient was given the phone number and address of the surgery clinic. Thank you for this consultation, please call with questions or concerns.
[2017-05-30] MEDS ORDERED: NACL 0.9% 100 ML IV PRN ×2 (17:53→18:55)
[2017-05-30] MEDS ORDERED: HEPARIN IV PRN (18:55)
--- NOTE | 2017-05-30 19:18 | Consultation ---
History of Present Illness - Reason for Consult Consult date: 05/30/17 - History of Present Illness pt was seen and examined during HD via right IJ catheter. Hyperkalemia, Uremia, Accelerated HTN. Pt is C/O pain at the catheter site--asking for pain medication. Alert, oriented. Lungs-diminished breath sounds in bases, Heart- regular S1,S2, Ext- no bruit over AV access in left upper arm access. Right index and middle finger distal phalages discoloration. BP-176/107,P-59, afebrile around 6.40pm. Past History Past Medical History: hypertension, renal failure, seizures Past Surgical History: cholecystectomy, Other (kidney transplant, total parathyroidectomy, vascaths and permcaths, LUE AVF, IR declotting procedures for AVF) Social history: denies: smoking, alcohol abuse, IV drug use Family history: no significant family history Medications and Allergies Allergies Allergy/AdvReac Type Severity Reaction Status Date / Time cefazolin sodium [From [facility]] Allergy Hives Verified 05/30/17 15:40 morphine Allergy Hives Verified 05/30/17 15:40 contrast dye Allergy Anaphylaxis Uncoded 05/25/15 20:21 Home Medications Medication Instructions Recorded Confirmed Last Taken Type Calcium Acetate [Phoslo] 2,001 mg PO TID 04/02/17 04/02/17 Unknown History Carvedilol [Coreg] 25 mg PO BID 04/02/17 04/02/17 Unknown History Ranitidine HCl [Acid Architectural Design Lecturer] 75 mg PO QHS 04/02/17 04/02/17 Unknown History Topiramate [Topamax] 100 mg PO BID 04/02/17 04/02/17 Unknown History amLODIPine [Norvasc] 10 mg PO DAILY 04/02/17 04/02/17 Unknown History Nitroglycerin [Nitro-Bid] 30 gm TD DAILY 5 Days oint...g. 04/05/17 Unknown Rx levETIRAcetam [Keppra TAB] 500 mg PO BID #60 tablet 04/05/17 Unknown Rx oxyCODONE /ACETAMINOPHEN [Percocet 1 tab PO Q6H PRN #14 tablet 04/05/17 Unknown Rx 5/325 mg] Active Meds: Active Medications Heparin Sodium (Porcine) (Heparin) 5,000 unit IV DANIEL PRN PRN Reason: hemodialysis Sodium Chloride (Nacl 0.9%) 100 mls @ 999 mls/hr IV DANIEL PRN PRN Reason: Hypotension Sodium Chloride (Nacl 0.9%) 100 mls @ 999 mls/hr IV DANIEL PRN PRN Reason: Hypotension Exam - Constitutional Vitals: Temp Pulse Resp BP Pulse Ox 97.9 F 60 16 164/81 100 05/30/17 17:07 05/30/17 17:45 05/30/17 17:45 05/30/17 17:45 05/30/17 17:45 Results - Labs CBC & Chem 7: 05/30/17 15:40 Labs: Abnormal lab results 05/30/17 Range/Units 15:40 Potassium 7.4 H* D (3.6-5.0) mmol/L
[2017-05-30] MEDS ORDERED: TORADOL IV PRN (19:20)
[2017-05-30] MEDS ORDERED: CATAPRES PO PRN (19:21)
[2017-05-30 20:38] LABS: Basophils % (Auto) 0.9 % (0.0-1.8); Hematocrit 30.8 % (30.3-42.9); Hemoglobin 10.4 gm/dl (10.1-14.3); Lymphocytes # (Auto) 1.2 K/mm3 (1.2-5.4); Lymphocytes % (Auto) 30.2 % (13.4-35.0); Mean Corpuscular HGB Conc 34 % (30-34); Mean Corpuscular Hemoglobin 32 pg (28-32); Mean Corpuscular Volume 94 fl (79-97); Monocytes # (Auto) 0.3 K/mm3 (0.0-0.8); Monocytes % (Auto) 6.2 % (0.0-7.3); Platelet Count 130 K/mm3 (140-440); Red Blood Count 3.28 M/mm3 (3.65-5.03); Red Cell Distribution Width 15.7 % (13.2-15.2)
[2017-05-30 21:04] LABS: Albumin 3.7 g/dL (3.9-5); Calcium 7.8 mg/dL (8.4-10.2)
[2017-05-30] MEDS ORDERED: NACL 0.9 (PRIMING MACHINE ONLY DIALYSIS) MC ONE (22:08)
[2017-05-30] MEDS ORDERED: K-DUR PO ONE (23:24)
--- NOTE | 2017-05-30 23:54 | History and Physical Report ---
History of Present Illness Date of examination: 05/30/17 Date of admission: 05/30/17 16:58 Chief complaint: CC Clotted AVG and High K level History of present illness: [place]:41 y/o AAF with Pmh of Htn and ESRd admitted from [facility] for High K level and emergent HD.Patient had Rt IJ Vas cat and due for declotting procedure tomorrow.Feeling weak.No fever or chills.No SOB. Past History Past Medical History: hypertension, renal failure, seizures Past Surgical History: cholecystectomy, Other (kidney transplant, total parathyroidectomy, vascaths and permcaths, LUE AVF, IR declotting procedures for AVF) Social history: denies: smoking, alcohol abuse, IV drug use Family history: no significant family history Medications and Allergies Allergies Allergy/AdvReac Type Severity Reaction Status Date / Time cefazolin sodium [From [facility]] Allergy Hives Verified 05/30/17 15:40 morphine Allergy Hives Verified 05/30/17 15:40 contrast dye Allergy Anaphylaxis Uncoded 05/25/15 20:21 Home Medications Medication Instructions Recorded Confirmed Last Taken Type Calcium Acetate [Phoslo] 2,001 mg PO TID 04/02/17 05/30/17 05/29/17 History Carvedilol [Coreg] 25 mg PO BID 04/02/17 05/30/17 05/29/17 History Ranitidine HCl [Acid Operating Room Scheduler] 75 mg PO QHS 04/02/17 05/30/17 05/29/17 History amLODIPine [Norvasc] 10 mg PO DAILY 04/02/17 05/30/17 05/29/17 History Nitroglycerin [Nitro-Bid] 30 gm TD DAILY 5 Days oint...g. 04/05/17 05/30/1709/08 Rx levETIRAcetam [Keppra TAB] 500 mg PO BID #60 tablet 04/05/17 05/30/17 05/29/17 Rx Active Meds: Active Medications Amlodipine Besylate (Norvasc) 10 mg PO QDAY ASHLEY Clonidine HCl (Catapres) 0.2 mg PO Q4H PRN PRN Reason: Hypertension Heparin Sodium (Porcine) (Heparin) 5,000 unit IV DANIEL PRN PRN Reason: hemodialysis Last Admin: 02/06/18 19:16 Dose: 5,000 unit Sodium Chloride (Nacl 0.9%) 100 mls @ 999 mls/hr IV DANIEL PRN PRN Reason: Hypotension Sodium Chloride (Nacl 0.9%) 100 mls @ 999 mls/hr IV DANIEL PRN PRN Reason: Hypotension Ketorolac Tromethamine (Toradol) 15 mg IV Q6H PRN PRN Reason: Pain, Mild (1-3) Stop: 06/04/17 19:19 Last Admin: 05/30/17 22:39 Dose: 15 mg Review of Systems All systems: negative Exam - Constitutional Vitals: Temp Pulse Resp BP Pulse Ox 98.8 F 62 16 160/80 100 05/30/17 21:18 05/30/17 21:18 05/30/17 21:18 05/30/17 21:18 05/30/17 17:45 General appearance: Present: no acute distress, well-nourished - EENT Eyes: Present: PERRL ENT: hearing intact, clear oral mucosa - Neck Neck: Present: supple, normal ROM - Respiratory Respiratory effort: normal Respiratory: bilateral: CTA - Cardiovascular Heart rate: 80 Rhythm: regular Heart Sounds: Present: S1 & S2. Absent: rub, click - Extremities Extremities: no ischemia, pulses intact, pulses symmetrical, No edema Peripheral Pulses: within normal limits - Abdominal General gastrointestinal: Present: soft, non-tender, non-distended, normal bowel sounds Female genitourinary: Present: normal - Rectal Rectal Exam: deferred - Integumentary Integumentary: Present: clear, warm, dry - Musculoskeletal Musculoskeletal: gait normal, strength equal bilaterally - Psychiatric Psychiatric: appropriate mood/affect, intact judgment & insight - Neurologic Neurologic: CNII-XII intact, moves all extremities - Allied Health Allied health notes reviewed: nursing, case management Results - Labs CBC & Chem 7: 05/30/17 20:25 05/31/17 05:11 Labs: Laboratory Last Values WBC 4.0 K/mm3 (4.5-11.0) L 05/30/17 20:25 RBC 3.28 M/mm3 (3.65-5.03) L 05/30/17 20:25 Hgb 10.4 gm/dl (10.1-14.3) 05/30/17 20:25 Hct 30.8 % (30.3-42.9) 05/30/17 20:25 MCV 94 fl (79-97) 05/30/17 20:25 MCH 32 pg (28-32) 05/30/17 20:25 MCHC 34 % (30-34) 05/30/17 20:25 RDW 15.7 % (13.2-15.2) H 05/30/17 20:25 Plt Count 130 K/mm3 (140-440) L 05/30/17 20:25 Lymph % (Auto) 30.2 % (13.4-35.0) 05/30/17 20:25 [place] % (Auto) 6.2 % (0.0-7.3) 05/30/17 20:25 Eos % (Auto) 0.0 % (0.0-4.3) 05/30/17 20:25 Baso % (Auto) 0.9 % (0.0-1.8) 05/30/17 20:25 Lymph # 1.2 K/mm3 (1.2-5.4) 05/30/17 20:25 [place] # 0.3 K/mm3 (0.0-0.8) 05/30/17 20:25 Eos # 0.0 K/mm3 (0.0-0.4) 05/30/17 20:25 Baso # 0.0 K/mm3 (0.0-0.1) 05/30/17 20:25 Seg Neutrophils % 62.7 % (40.0-70.0) 05/30/17 20:25 Seg Neutrophils # 2.5 K/mm3 (1.8-7.7) 05/30/17 20:25 Sodium 135 mmol/L (137-145) L 05/30/17 20:25 Potassium 2.0 mmol/L (3.6-5.0) L* D 05/30/17 21:30 Chloride 93.9 mmol/L (98-107) L 05/30/17 20:25 Carbon Dioxide 28 mmol/L (22-30) 05/30/17 20:25 Anion Gap 17 mmol/L 05/30/17 20:25 BUN 40 mg/dL (7-17) H 05/30/17 20:25 Creatinine 7.9 mg/dL (0.7-1.2) H D 05/30/17 20:25 Estimated GFR 7 ml/min 05/30/17 20:25 BUN/Creatinine Ratio 5 % 05/30/17 20:25 Glucose 140 mg/dL (65-100) H 05/30/17 20:25 Calcium 7.8 mg/dL (8.4-10.2) L 05/30/17 20:25 Total Bilirubin 0.20 mg/dL (0.1-1.2) 05/30/17 20:25 AST 9 units/L (5-40) 05/30/17 20:25 ALT 5 units/L (7-56) L 05/30/17 20:25 Alkaline Phosphatase 50 units/L (35-129) 05/30/17 20:25 Total Protein 6.2 g/dL (6.3-8.2) L 05/30/17 20:25 Albumin 3.7 g/dL (3.9-5) L 05/30/17 20:25 Albumin/Globulin Ratio 1.5 % 05/30/17 20:25 TSH 0.960 mlU/mL (0.270-4.200) 05/30/17 20:25 Short CBC 05/30/17 Range/Units 20:25 WBC 4.0 L (4.5-11.0) K/mm3 Hgb 10.4 (10.1-14.3) gm/dl Hct 30.8 (30.3-42.9) % Plt Count 130 L (140-440) K/mm3 BMP 05/30/17 05/30/17 05/30/17 15:40 20:25 21:30 Sodium 135 L Potassium 7.4 H* D 3.9 D 2.0 L* D Chloride 93.9 L Carbon Dioxide 28 BUN 40 H Creatinine 7.9 H D Glucose 140 H Calcium 7.8 L 05/31/17 05/31/17 03:04 05:11 Sodium 140 Potassium 5.5 H D 5.6 H Chloride 97.9 L Carbon Dioxide 27 BUN 36 H Creatinine 9.6 H Glucose 66 Calcium 7.3 L Liver Function 05/30/17 Range/Units 20:25 Total Bilirubin 0.20 (0.1-1.2) mg/dL AST 9 (5-40) units/L ALT 5 L (7-56) units/L Alkaline Phosphatase 50 (35-129) units/L Albumin 3.7 L (3.9-5) g/dL Assessment and Plan Advance Directives: Yes (full code) VTE prophylaxis?: Chemical Plan of care discussed with patient/family: Yes - Patient Problems (1) Hyperkalemia Current Visit: No Status: Acute Plan to address problem: Patient being taken for Emergent HD.Low K bath.Recheck K level (2) Mass of right axilla Current Visit: Yes Status: Chronic Plan to address problem: Surgery consulted.Biopsy as out patient and f/u with Surgery (3) AV graft malfunction Current Visit: No Status: Acute Qualifiers: Encounter type: initial encounter Qualified Code(s): T82.590A - Other mechanical complication of surgically created arteriovenous fistula, initial encounter Plan to address problem: For declotting procedure tomorrow (4) Volume overload Current Visit: No Status: Acute Qualifiers: Hypervolemia type: unspecified Qualified Code(s): E87.70 - Fluid overload, unspecified Plan to address problem: Emergent HD (5) Dialysis patient, noncompliant Current Visit: No Status: Chronic Plan to address problem: Counselled (6) ESRD needing dialysis Current Visit: No Status: Chronic Plan to address problem: Nephrology consulted for HD orders (7) HTN (hypertension) Current Visit: No Status: Chronic Qualifiers: Hypertension type: essential hypertension Qualified Code(s): I10 - Essential (primary) hypertension Plan to address problem: cont antihypertensives (8) Seizure disorder Current Visit: Yes Status: Chronic Plan to address problem: Cont keppra (9) DVT prophylaxis Current Visit: No Status: Acute Plan to address problem: on Heparin
[2017-05-31] MEDS ORDERED: TYLENOL PO PRN (00:49)
[2017-05-31] MEDS ORDERED: MILK OF MAGNESIA PO PRN (00:49)
[2017-05-31] MEDS ORDERED: PERCOCET 5/325 PO PRN (00:49)
[2017-05-31] MEDS ORDERED: AMBIEN PO PRN (00:49)
[2017-05-31] MEDS ORDERED: DULCOLAX PR PRN (00:49)
[2017-05-31] MEDS ORDERED: ZOFRAN IV PRN (00:49)
[2017-05-31] MEDS ORDERED: MORPHINE IV PRN (00:49)
[2017-05-31] MEDS ORDERED: DILAUDID IV PRN (00:49)
[2017-05-31 03:47] LABS: Calcium 7.3 mg/dL (8.4-10.2)
--- NOTE | 2017-05-31 05:10 | Consultation ---
RENAL CONSULTATION REASON FOR CONSULTATION: Hyperkalemia and renal failure. HISTORY OF PRESENT ILLNESS: This 41-year-old Afro-Monegasque female with end-stage renal disease, status post failed kidney transplant, hypertension, history of seizure disorder, was sent to the hospital for a clotted left upper arm AV access. The patient noticed dialysis access not working on Monday. Her last dialysis treatment was last Monday on 05/24/2017. Yesterday she came to the Emergency Room, but did not wait for the admission and left AMA. Today, she came to the office to be evaluated and then she was sent to OPPU after discussing with Dr. Eric Kruse. In the hospital, patient's potassium was reported to be 7.4 today. Right internal jugular catheter was placed for an emergency dialysis. The patient also is noted to have a large mass abutting axillary vein/artery in the left axilla. Surgery consultation was obtained by Dr. Calvo; vascular surgeon, Dr. Bajwa. The patient had left upper arm access at [facility]. The patient is not sure of who her vascular surgeon is. She moved from [place] several years ago. PAST MEDICAL AND SURGICAL HISTORY: End-stage renal disease, hypertension, history of seizure disorder, status post failed kidney transplant, status post parathyroid surgery, declotting procedures for AV fistula in the left upper arm, status post cholecystectomy. PERSONAL HISTORY: Denies smoking, alcohol, or drug abuse. FAMILY HISTORY: No family history of kidney failure. ALLERGIES: CEFAZOLIN, MORPHINE, AND CONTRAST DYE. HOME MEDICATIONS: Carvedilol 25 mg twice a day, PhosLo with each meal, Topamax 100 mg b.i.d., amlodipine 10 mg once a day, Keppra 500 mg p.o. b.i.d. REVIEW OF SYSTEMS: The patient denies chest pain or shortness of breath, but complains of pain at the dialysis catheter site on the right side of the neck. Denies abdomen pain. Has intermittent nausea. Appetite is fair. Denies fever or chills. The patient complains of pain in her right index and middle finger tip. Other review of systems reviewed and negative. PHYSICAL EXAMINATION: GENERAL: The patient is alert, oriented, well-developed, pleasant female, not in acute distress. VITAL SIGNS: Blood pressure 176/107, pulse 59, afebrile. HEENT: Normocephalic. Eyes: Pupils reactive. Conjunctivae pale. Oral mucosa and tongue are dry. Lips noncyanotic. NECK: No JVD, no thyroid enlargement. LUNGS: Diminished breath sounds in bases. HEART: S1, S2 regular. ABDOMEN: Soft, bowel sounds present, nontender. EXTREMITIES: No significant edema. Left upper arm AV access has no bruit or thrill. Right index and middle finger distal phalanges has discoloration. LABORATORY DATA: Potassium 7.4. ASSESSMENT AND PLAN: 1. Hyperkalemia. 2. Uremia. 3. Accelerated hypertension. 4. ESRD. 5. Malfunctioning left upper arm AV access. 6. Accelerated hypertension. 7. Anemia. 8. Status post failed kidney transplant. 9. Secondary hyperparathyroidism, status post parathyroid surgery. 10. Ischemic right index and middle finger distal phalanges. Emergency hemodialysis as ordered. Follow up on the electrolytes. The patient was advised on a renal diet, emphasized on a low potassium diet. Ultrafiltration as tolerated with dialysis. Vascular surgery consult appreciated. The patient to have declotting tomorrow. Surgery consult appreciated for evaluation of right axilla lump. JOB# [id number] ALONDRAK/NTS
[2017-05-31] MEDS: PHOSLO PO SCH ×2 (08:00→14:06)
--- NOTE | 2017-05-31 09:33 | Progress Note ---
Subjective Date of service: 05/31/17 Objective - Vital Signs Vital signs: Vital Signs - 12hr 05/30/17 05/30/17 05/31/17 22:05 23:00 00:28 Temperature 98.6 F 98.5 F Pulse Rate 68 66 Respiratory 18 18 Rate Blood Pressure 164/91 180/93 Blood Pressure [Right] O2 Sat by Pulse 100 Oximetry 05/31/17 05/31/17 05/31/17 01:21 03:34 03:38 Temperature 98.4 F Pulse Rate 73 53 L 83 Respiratory 20 Rate Blood Pressure Blood Pressure 174/57 [Right] O2 Sat by Pulse 97 99 97 Oximetry 05/31/17 05/31/17 05/31/17 04:02 08:31 08:46 Temperature 98.2 F 98.2 F 97.8 F Pulse Rate 53 L 61 57 L Respiratory 20 16 18 Rate Blood Pressure 151/77 Blood Pressure 170/85 147/90 [Right] O2 Sat by Pulse 98 100 99 Oximetry 05/31/17 09:12 Temperature Pulse Rate 59 L Respiratory Rate Blood Pressure Blood Pressure [Right] O2 Sat by Pulse Oximetry - Lab 05/30/17 20:25 05/31/17 05:11 Most recent lab results Calcium 7.3 mg/dL (8.4-10.2) L 05/31/17 03:04
[2017-05-31] MEDS ORDERED: HEPARIN/NS 5000 UNIT/500ML(CATH LAB) 500 ML IR ONE (09:34)
[2017-05-31] MEDS ORDERED: XYLOCAINE 2% INFILTRATI ONE (09:35)
[2017-05-31] MEDS ORDERED: BENADRYL ONE (09:36)
[2017-05-31] MEDS ORDERED: NACL 0.9% 100 ML ONE (09:37)
[2017-05-31] MEDS ORDERED: ANCEF/STERILE WATER 2 GM/20 ML 0 GM/0 ML SYRINGE IV ONE (09:37)
[2017-05-31] MEDS: VERSED ONE ×4 (10:00→11:08)
[2017-05-31] MEDS ORDERED: COREG PO SCH (10:00)
[2017-05-31] MEDS ORDERED: NORVASC PO SCH ×2 (10:00)
[2017-05-31] MEDS: SUBLIMAZE ONE ×5 (10:00→11:08)
[2017-05-31] MEDS ORDERED: KEPPRA PO SCH (10:00)
[2017-05-31] MEDS ORDERED: HEPARIN 10,000 UNITS/10 ML ONE (10:15)
[2017-05-31] MEDS ORDERED: NACL 0.9% 100 ML IV PRN (11:00)
--- NOTE | 2017-05-31 11:25 | Operative Report ---
Operative Report Operative Report: EXAM: LEFT UPPER EXTREMITY FISTULOGRAM, THROMBECTOMY, VENOPLASTY WITH STENT PLACEMENT CLINICAL INDICATION: PATIENT WITH A HISTORY OF LEFT UPPER EXTREMITY BRACHIOCEPHALIC GRAFT THAT IS THROMBOSED. DATE: 05/31/2017 PROCEDURE: Following an expiration of the risks, benefits and alternatives; written informed consent was obtained. The patient was brought to the intra- graphic suite and placed in supine position on the examination table. Initial evaluation of her left arm graft demonstrated thrombus within her graft. Patient has a medial abandoned graft in her left upper arm. The patient's arm was prepped and draped in usual sterile fashion. One percent lidocaine was used for anesthesia. The graft was cannulated towards the venous anastomosis using a 7 cm 21-gauge needle. A 0.018 guidewire was advanced centrally. The needle was removed and a micro-sheath placed. The 0.018 guidewire was exchanged for 0.035 guidewire and the micro-sheath exchanged for a 7 [place] vascular sheath. Access towards arterial anastomosis was obtained in a similar fashion and an additional 7 [place] sheath directed towards the arterial anastomosis. A 4 [place] vertebral catheter was advanced over the 035 wire and imaging obtained of the central veins. The central veins are widely patent. Previously placed stents within the cephalic arch are occluded. There is a 99% stenosis followed arched anastomosis. A pullback venogram demonstrates a 70% stenosis at the venous anastomosis. Distal to the venous anastomosis, the vein comes massively dilated with a significant size mismatch between the graft and cantwell vein. The vertebral catheter was advanced over the guidewire through the arterial anastomosis. There is irregular pseudoaneurysm just proximal to the anastomosis likely at the site of prior graft implantation site. There is thrombus extending from the arterial anastomosis to the cephalic arch stents. Mechanical thrombectomy was performed using a treatment for mechanical thrombectomy device. Post thrombectomy angioplasty of the arch stenosis was performed using an 8 mm balloon without significant reduction in the degree of stenosis. Angioplasty of the entire graft was performed oozing 8 mm balloon. It was noted that the arterial anastomosis also has some degree of narrowing and this was treated with a 5 mm balloon. The thrombus was swept free using a Ken balloon from the arterial anastomosis through the central veins. [place] additional mechanical thrombectomy was performed at multiple locations for residual clot. At this point, flow has been reestablished however there is sluggish flow secondary to the cephalic arch stenosis. A decision was made to place a stent across this lesion. A 10 mm x 60 mm fluency stent was deployed across the lesion and seated using the 8 mm balloon. Post an appointment imaging demonstrated reduction of the stenosis to less than 20%. There is still retained thrombus in the dilated vein proximal to the stent and distal to the graft. A flow lumen however was established. Palpable thrill was present. At this point, the catheters, guidewires and sheaths were removed and hemostasis achieved using 4-0 Vicryl suture and manual compression. Sterile dressings were then applied. The patient tolerated the procedure well. There was no immediate post procedure competition. Conscious sedation was performed under the guidance of radiologic nursing. Continuous cardiopulmonary monitoring was utilized. Impression: 1) Left upper extremity Fistulogram Demonstrated Thrombus from the Arterial Anastomosis to Cephalic Arch Stents. 2) 99% Stenosis at the Cephalic Arch, 70% Stenosis at the Venous Anastomosis with Dilation of the Vein Distally to the Venous Anastomosis and 50% Stenosis at the Arterial Anastomosis. Pseudoaneurysm Is Also Present within the Brachial Artery Proximal to the Arterial Anastomosis. 3) Mechanical Thrombectomy As Described. 4) Treatment of the Cephalic Arch Stenosis with Venoplasty and Stent. Treatment of the Other Lesions with Venoplasty.
--- NOTE | 2017-05-31 13:08 | Progress Note ---
Assessment and Plan Assessment and plan: AV graft malfunction/thrombosed. Pt. s/p LUE fistulogram, thrombectomy and venoplasty with stent placement. Hyperkalemia. Resolved with HD Right axillary mass. Core needle biopsy with imaging guidance as outpatient per Dr. Bajwa ESRd. Cont. HD per Nephrology Sz d/o. Cont. Keppra. Sz precautions DVT prophylaxis. Cont. lovenox History Interval history: No new issues Hospitalist Physical - Constitutional Vitals: Temp Pulse Resp BP Pulse Ox 97.6 F 66 18 169/95 100 05/31/17 11:28 05/31/17 12:15 05/31/17 11:28 05/31/17 12:15 05/31/17 10:00 General appearance: Present: no acute distress, well-nourished - EENT Eyes: Present: PERRL, EOM intact ENT: hearing intact, clear oral mucosa, dentition normal - Neck Neck: Present: supple, normal ROM - Respiratory Respiratory effort: normal Respiratory: bilateral: CTA - Cardiovascular Rhythm: regular Heart Sounds: Present: S1 & S2. Absent: gallop, rub - Extremities Extremities: no ischemia, No edema, Full ROM - Abdominal General gastrointestinal: soft, non-tender, non-distended, normal bowel sounds - Integumentary Integumentary: Present: clear, warm, dry - Neurologic Neurologic: CNII-XII intact, moves all extremities Results - Labs CBC & Chem 7: 05/30/17 20:25 05/31/17 05:11 Labs: Laboratory Last Values WBC 4.0 K/mm3 (4.5-11.0) L 05/30/17 20:25 RBC 3.28 M/mm3 (3.65-5.03) L 05/30/17 20:25 Hgb 10.4 gm/dl (10.1-14.3) 05/30/17 20:25 Hct 30.8 % (30.3-42.9) 05/30/17 20:25 MCV 94 fl (79-97) 05/30/17 20:25 MCH 32 pg (28-32) 05/30/17 20:25 MCHC 34 % (30-34) 05/30/17 20:25 RDW 15.7 % (13.2-15.2) H 05/30/17 20:25 Plt Count 130 K/mm3 (140-440) L 05/30/17 20:25 Lymph % (Auto) 30.2 % (13.4-35.0) 05/30/17 20:25 [place] % (Auto) 6.2 % (0.0-7.3) 05/30/17 20:25 Eos % (Auto) 0.0 % (0.0-4.3) 05/30/17 20:25 Baso % (Auto) 0.9 % (0.0-1.8) 05/30/17 20:25 Lymph # 1.2 K/mm3 (1.2-5.4) 05/30/17 20:25 [place] # 0.3 K/mm3 (0.0-0.8) 05/30/17 20:25 Eos # 0.0 K/mm3 (0.0-0.4) 05/30/17 20:25 Baso # 0.0 K/mm3 (0.0-0.1) 05/30/17 20:25 Seg Neutrophils % 62.7 % (40.0-70.0) 05/30/17 20:25 Seg Neutrophils # 2.5 K/mm3 (1.8-7.7) 05/30/17 20:25 Sodium 140 mmol/L (137-145) 05/31/17 03:04 Potassium 5.6 mmol/L (3.6-5.0) H 05/31/17 05:11 Chloride 97.9 mmol/L (98-107) L 05/31/17 03:04 Carbon Dioxide 27 mmol/L (22-30) 05/31/17 03:04 Anion Gap 21 mmol/L 05/31/17 03:04 BUN 36 mg/dL (7-17) H 05/31/17 03:04 Creatinine 9.6 mg/dL (0.7-1.2) H 05/31/17 03:04 Estimated GFR 5 ml/min 05/31/17 03:04 BUN/Creatinine Ratio 4 % 05/31/17 03:04 Glucose 66 mg/dL (65-100) 05/31/17 03:04 Hemoglobin A1c 4.1 % (4-6) 05/31/17 03:04 Calcium 7.3 mg/dL (8.4-10.2) L 05/31/17 03:04 Total Bilirubin 0.20 mg/dL (0.1-1.2) 05/30/17 20:25 AST 9 units/L (5-40) 05/30/17 20:25 ALT 5 units/L (7-56) L 05/30/17 20:25 Alkaline Phosphatase 50 units/L (35-129) 05/30/17 20:25 Total Protein 6.2 g/dL (6.3-8.2) L 05/30/17 20:25 Albumin 3.7 g/dL (3.9-5) L 05/30/17 20:25 Albumin/Globulin Ratio 1.5 % 05/30/17 20:25 TSH 0.960 mlU/mL (0.270-4.200) 05/30/17 20:25
[2017-05-31 16:07] VITALS: BP 197/90
[2017-05-31] MEDS ORDERED: PEPCID PO SCH (22:00)
[2017-05-31] MEDS ORDERED: RANITIDINE HCL 75 MG PO SCH (22:00)
--- NOTE | 2017-06-01 08:33 | Discharge Summary ---
Providers - Providers Date of Admission: 05/30/17 16:58 Date of discharge: 05/31/17 Attending physician: LORA SMALL 05/30/17 17:20 Consult to Physician [CONS] Routine Consulting Provider: LEXUS BANKS Reason For Exam: ESRD Place consult to:: Dr Lugo Notified:: Answering service Phone number called:: [phone] Was contact made?: Yes If yes, spoke with:: Dr Lugo Time called:: 17:38 05/31/17 00:51 Consult to Physician [CONS] Routine Consulting Provider: CRYSTAL JORGE Reason For Exam: AVF clot Place consult to:: Dr. Jorge Notified:: Yee RN Phone number called:: Was contact made?: Yes If yes, spoke with:: Yumiko-Office Time called:: 09:20 Primary care physician: LOLA GALAVIZ Hospitalization Reason for admission: av graft malfunction Hospital course: 41 y/o AAF with Pmh of Htn and ESRd admitted from [facility] for High K level and emergent HD. Patient had Rt IJ Vas cath placed and was admitted for declotting procedure. Pt. underwent LUE fistulogram, thrombectomy and venoplasty with stent placement. After procedure, and transfer to med floor. Pt. was noted to be rude and belligerent with staff. Pt. left hospital/elopement. Charge nurse Called and spoke to Sybil Gabriel @[phone], advised pt she needed to come back to the hospital to have line removed, Pt became very irate on the phone, charge nurse spoke w/ Dr. Banks who also stated to remove line. Pt stated, she was not coming back to the hospital to have the line removed. The authorities were notified and she was brought back to the hospital to have to have line removed. Pt. returned with authorities to have vas cath removed as ordered. 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 Disposition: [id number] LEFT AGAINST MED ADVICE Time spent for discharge: 34 - Discharge Diagnoses (1) AV graft malfunction Status: Acute Qualifiers: Encounter type: initial encounter Qualified Code(s): T82.590A - Other mechanical complication of surgically created arteriovenous fistula, initial encounter Core Measure Documentation - Palliative Care Palliative Care/ Comfort Measures: Not Applicable - Core Measures Any of the following diagnoses?: none Exam - Constitutional Vitals: Temp Pulse Resp BP Pulse Ox 98.2 F 52 L 18 197/90 100 05/31/17 15:00 05/31/17 15:00 05/31/17 15:00 05/31/17 15:00 05/31/17 15:00 Plan Follow up with: LOLA GALAVIZ MD [Primary Care Provider] - 7 Days Forms: AMA Form
== END 2017-05-31 17:38 | disposition left against medical advice (07) | DRG 252 ==
LOC: CATHLABREC 14:36 → 4A 16:58
PROVIDERS: ADMIT Internal Medicine; ATTEND Hospitalist
PROC: B5131ZA Fluoroscopy of Right Jugular Veins using Low Osmolar Contrast, Guidance (ICD-10-PCS; 2017-05-30)
PROC: 5A1D70Z Performance of Urinary Filtration, Intermittent, Less than 6 Hours Per Day (ICD-10-PCS; 2017-05-30)
PROC: 02H633Z Insertion of Infusion Device into Right Atrium, Percutaneous Approach (ICD-10-PCS; 2017-05-30)
PROC: 03C83ZZ Extirpation of Matter from Left Brachial Artery, Percutaneous Approach (ICD-10-PCS; principal; 2017-05-31)
PROC: 05CF3ZZ Extirpation of Matter from Left Cephalic Vein, Percutaneous Approach (ICD-10-PCS; 2017-05-31)
PROC: 5A1D70Z Performance of Urinary Filtration, Intermittent, Less than 6 Hours Per Day (ICD-10-PCS; 2017-05-31)
PROC: B51W1ZZ Fluoroscopy of Dialysis Shunt/Fistula using Low Osmolar Contrast (ICD-10-PCS; 2017-05-31)
PROC: B31J1ZZ Fluoroscopy of Left Upper Extremity Arteries using Low Osmolar Contrast (ICD-10-PCS; 2017-05-31)
PROC: 057F3DZ Dilation of Left Cephalic Vein with Intraluminal Device, Percutaneous Approach (ICD-10-PCS; 2017-05-31)
DX: T82.590A Other mechanical complication of surgically created arteriovenous fistula, initial encounter (principal); N18.6 End stage renal disease; I12.0 Hypertensive chronic kidney disease with stage 5 chronic kidney disease or end stage renal disease; N25.81 Secondary hyperparathyroidism of renal origin; Z94.0 Kidney transplant status; T82.856A Stenosis of peripheral vascular stent, initial encounter; E87.5 Hyperkalemia; E89.0 Postprocedural hypothyroidism; E87.70 Fluid overload, unspecified; G40.909 Epilepsy, unspecified, not intractable, without status epilepticus; D64.9 Anemia, unspecified; Z90.49 Acquired absence of other specified parts of digestive tract; Z88.5 Allergy status to narcotic agent; Z91.041 Radiographic dye allergy status; Z79.899 Other long term (current) drug therapy; Z91.15 Patient's noncompliance with renal dialysis; Z71.89 Other specified counseling; I72.8 Aneurysm of other specified arteries
CPT/HCPCS: 36415; 36556; 36906; 76937; 80048; 80053; 83036; 84132; 84443; 85025; C1725; C1751; C1752; C1757; C1769; C1874; C1894; J0690; J1200; J1644; J1885; J2250; J2930; J3010; J7030; Q9967

== ENCOUNTER 2017-07-26 06:09 | Day surgery (SDC) | payer MEDICARE ==
[~2017-07-26 06:09] MED LIST: NACL 0.9% 1000 ML 1,000 ML IV SCH; VANCOMYCIN/NS 1 GM/250 ML 1 GM/250 ML BAG IV NR
[2017-07-26] MEDS ORDERED: NACL BACTERIOSTATIC INFILTRATI ONE (06:51)
[2017-07-26 07:18] LABS: Basophils % (Auto) 0.9 % (0.0-1.8); Hematocrit 36.2 % (30.3-42.9); Hemoglobin 12.1 gm/dl (10.1-14.3); Lymphocytes # (Auto) 1.4 K/mm3 (1.2-5.4); Lymphocytes % (Auto) 29.6 % (13.4-35.0); Mean Corpuscular HGB Conc 34 % (30-34); Mean Corpuscular Hemoglobin 33 pg (28-32); Mean Corpuscular Volume 98 fl (79-97); Monocytes # (Auto) 0.6 K/mm3 (0.0-0.8); Monocytes % (Auto) 12.1 % (0.0-7.3); Platelet Count 143 K/mm3 (140-440); Red Cell Distribution Width 16.1 % (13.2-15.2)
--- NOTE | 2017-07-26 07:32 | Anesthesia Day of Surgery ---
Anesthesia Day of Surgery - Day of Surgery Patient Examined: Yes Patient H&P Reviewed: Yes Patient is NPO: Yes
--- NOTE | 2017-07-26 07:32 | Anesthesia Consultation ---
Anesthesia Consult and Med Hx Date of service: 07/26/17 - Airway Anesthetic Teeth Evaluation: Good ROM Head & Neck: Adequate Mental/Hyoid Distance: Adequate Mallampati Class: Class II Intubation Access Assessment: Good - Pulmonary Exam CTA: Yes - Pre-Operative Health Status ASA Pre-Surgery Classification: ASA3 Proposed Anesthetic Plan: General - Pulmonary Hx Smoking: Yes Hx Asthma: No COPD: No Hx Pneumonia: No Hx Sleep Apnea: Yes (No CPAP) - Cardiovascular System Hx Hypertension: Yes Hx Coronary Artery Disease: No Hx Heart Attack/AMI: No Hx Angina: No Hx Percutaneous Transluminal Coronary Angioplasty (PTCA): No Hx Pacemaker: No Hx Internal Defibrillator: No Hx Valvular Heart Disease: No Hx Heart Murmur: No Hx Peripheral Vascular Disease: No - Central Nervous System Hx Seizures: Yes Hx Psychiatric Problems: No - Endocrine Hx Renal Disease: Yes (HD) Hx End Stage Renal Disease: Yes - Hematic Hx Anemia: Yes Hx Sickle Cell Disease: No - Other Systems Hx Alcohol Use: Yes (occas) Hx Cancer: No
[2017-07-26 07:33] LABS: Calcium 8.5 mg/dL (8.4-10.2)
[2017-07-26] MEDS ORDERED: XYLOCAINE MPF 2% ONE (07:40)
[2017-07-26] MEDS ORDERED: DIPRIVAN 10 MG/ML IV ONE (07:40)
[2017-07-26] MEDS ORDERED: SUBLIMAZE ONE (07:41)
[2017-07-26] MEDS ORDERED: SODIUM BICARBONATE ONE (07:49)
[2017-07-26] MEDS ORDERED: GELFOAM TP ONE (07:49)
[2017-07-26] MEDS ORDERED: HEPARIN 10,000 UNITS/10 ML ONE ×3 (07:49→09:22)
[2017-07-26] MEDS ORDERED: MARCAINE 0.5% INFILTRATI ONE ×2 (07:49→08:57)
[2017-07-26] MEDS ORDERED: NACL 0.9% 500 ML 500 ML ONE (07:49)
[2017-07-26] MEDS ORDERED: XYLOCAINE 1%/ EPI 1:100,000 INFILTRATI ONE (07:49)
[2017-07-26] MEDS ORDERED: THROMBIN (BOVINE) TP ONE (07:49)
[2017-07-26] MEDS ORDERED: PROTAMINE SULFATE ONE (07:50)
[2017-07-26] MEDS ORDERED: VANCOMYCIN/0.45 NS 1 GM/250 ML 1 GM/250 ML BAG IV SCH (08:00)
[2017-07-26] MEDS ORDERED: PEPCID PO NR (08:00)
[2017-07-26] MEDS ORDERED: VERSED IV NR (08:00)
[2017-07-26] MEDS ORDERED: ePHEDrine SULFATE ONE (08:27)
[2017-07-26] MEDS ORDERED: RIFADIN ONE (08:40)
[2017-07-26] MEDS ORDERED: NACL 0.9% IR ONE (08:56)
[2017-07-26] MEDS ORDERED: NITROGLYCERIN SYRINGE 3 ML ONE (09:03)
[2017-07-26] MEDS ORDERED: ZOFRAN ONE (09:22)
[2017-07-26] MEDS ORDERED: ROBINUL ONE (09:30)
[2017-07-26] MEDS ORDERED: NITROGLYCERIN SYRINGE UD ONE (09:38)
--- NOTE | 2017-07-26 10:12 | Short Stay Summary ---
Short Stay Documentation Date of service: 07/26/17 - History H&P: obtained from office - Allergies and Medications Current Medications: Allergies cefazolin sodium [From Anc] Allergy (Verified 07/24/17 18:24) Hives morphine Allergy (Verified 07/24/17 18:24) Hives contrast dye Allergy (Uncoded 07/24/17 18:24) Anaphylaxis Home Medications Medication Instructions Recorded Confirmed Last Taken Type Calcium Acetate [Phoslo] 2,001 mg PO TID 04/02/17 07/26/17 07/25/17 History Carvedilol [Coreg] 25 mg PO BID 04/02/17 07/26/17 07/26/17 05:30 History Ranitidine HCl [Acid Beverage Inspection Machine Tender] 75 mg PO QHS 04/02/17 07/26/17 07/25/17 History amLODIPine [Norvasc] 10 mg PO DAILY 04/02/17 07/26/17 1 Month Ago History ~06/25/17 levETIRAcetam [Keppra TAB] 500 mg PO BID #60 tablet 04/05/17 07/24/17 07/26/17 05:30 Rx Nitroglycerin [Nitro-Bid] 30 gm TD PRN PRN 07/24/17 07/26/17 2 Weeks Ago History ~07/12/17 Calcium Carbonate [Tums] 1,000 mg PO QDAY 07/26/17 07/26/17 07/25/17 History Active Medications Sodium Chloride (Nacl 0.9% 1000 Ml) 1,000 mls @ 42 mls/hr IV DIRECT ASHLEY Last Admin: 07/26/17 07:00 Dose: 42 mls/hr Vancomycin HCl (Vancomycin/0.45 Ns 1 Gm/250 Ml) 1 gm in 250 mls @ 167.007 mls/ hr IV PREOP ASHLEY Last Admin: 07/26/17 07:58 Dose: 167.007 mls/hr Midazolam HCl (Versed) 2 mg IV PREOP NR Stop: 07/26/17 23:59 Last Admin: 07/26/17 07:57 Dose: 2 mg - Brief post op/procedure progress note Date of procedure: 07/26/17 Pre-op diagnosis: ESRD Post-op diagnosis: same Procedure: RUE AVF brchiobasilic at elbow Anesthesia: other (general, LMA, MArcaine at wound) Findings: good thrill at avf, 2+ radial pulse right Surgeon: ETIENNE UNDERWOOD Estimated blood loss: minimal Pathology: none Condition: stable - Hospital course Hospital course: benign - Disposition Condition at discharge: Good Disposition: DC-01 TO HOME OR SELFCARE Short Stay Discharge Plan Activity: no restrictions Diet: advance as tolerated Wound: per your surgeon's advice Follow up with: ETIENNE UNDERWOOD MD [Staff Physician] - 7 Days Prescriptions: HYDROcodone/APAP 5-325 [[place] 5/325] 1 each PO Q6HR PRN #30 tablet PRN Reason: Pain
--- NOTE | 2017-07-26 10:19 | Operative Report ---
Operative Report Operative Report: Date of procedure: 07/26/2017 Pre-operative diagnosis: End-stage renal failure Post-operative diagnosis: Same Procedure name(s): Right upper extremity basilic vein to brachial artery fistula just above the elbow Surgeon: Eh Robles MD Manager Regional: [facility] Anesthesia: LMA, local EBL: Less than 50 mL Operative indication: Patient is a 42-year-old woman with end-stage renal failure who presents for creation of right upper extremity arterial venous fistula. Findings: Patient had chronic thrombus in the basilic vein just at the level of the elbow. The anastomosis was done to the brachial artery above this area. There was an excellent thrill in the AV fistula and a 2+ radial pulse on the right at the end of the case. Procedure: The patient was placed on the table in the supine position. The arm was prepped with ChloraPrep solution and draped in the usual sterile fashion. The ultrasound was used to identify the basilic vein after a tourniquet had been placed in the upper arm using a rubber glove. The brachial artery and radial artery bifurcated in the upper portion of the arm. A note was made of this during the ultrasound examination. The basilic vein appeared to be of excellent caliber throughout. However, at the level of the elbow there was chronic thrombus noted at the branch point of the basilic vein with a 1 vein goes to the antecubital fossa and the other one continues of the basilic vein. Distal to that point the basilic vein appeared to be in good condition as well. Under local anesthesia, an incision was made just above the level of the elbow on the medial portion of the arm. Dissection was carried out to identify the basilic vein. Dissection was also carried out to identify the brachial artery. Great care was taken to make sure that I was dissecting out the brachial artery not the radial artery. This was confirmed with Doppler interrogation of the local vessels. The vein was dissected out to provide enough length to reach the artery. A branch point of the vein was spatulated for the anastomosis. However, the branch point was obstructed with chronic thrombus. I had to make a venotomy more proximally in the vein to get to a normal lumen. Nitroglycerin was instilled into the vein to dwell while the anastomosis was created. An arteriotomy was made in the artery. Nitroglycerin was instilled into the proximal portion of the artery as well. An end-to-side anastomosis was created using running 7-0 Prolene. A #2 Ken catheter was used to make sure all vessels were patent. The anastomosis was completed and flow started into the fistula. There was a strong thrill up the arm. Hemostasis was obtained. The wound was infiltrated with half percent Marcaine 1 /2% plain. Closure was done with 3-0 Vicryl and 4-0 subcuticular PDS. Dermabond was placed. The patient tolerated the procedure well. There was an easily palpable right radial pulse at the end of the procedure. There was a good thrill in the fistula at the end of the procedure. Sponge, needle, and instrument counts were reported as correct.
[2017-07-26] MEDS ORDERED: NORCO 5/325 PO SCH (11:13)
[2017-07-26 15:53] VITALS: BP 156/71
== END 2017-07-26 12:15 | disposition home or self-care (01) ==
LOC: OR 06:09
PROVIDERS: ATTEND Surgery Vascular Surgery
DX: I12.0 Hypertensive chronic kidney disease with stage 5 chronic kidney disease or end stage renal disease (principal); N18.6 End stage renal disease; G47.30 Sleep apnea, unspecified; F17.200 Nicotine dependence, unspecified, uncomplicated; Z88.4 Allergy status to anesthetic agent; Z91.048 Other nonmedicinal substance allergy status
CPT/HCPCS: 36415; 36821; 80048; 84703; 85025; C1757; J1644; J2250; J2405; J2704; J3010; J3370; J7030; J7040; A4649; J2720; J3490

== ENCOUNTER 2017-10-16 02:51 | Emergency (ER) | payer MEDICARE ==
[2017-10-16 03:04] VITALS: BP 201/89
[2017-10-16 04:36] LABS: Basophils % (Auto) 0.5 % (0.0-1.8); Hematocrit 36.6 % (30.3-42.9); Hemoglobin 12.1 gm/dl (10.1-14.3); Lymphocytes # (Auto) 0.9 K/mm3 (1.2-5.4); Lymphocytes % (Auto) 20.7 % (13.4-35.0); Mean Corpuscular HGB Conc 33 % (30-34); Mean Corpuscular Hemoglobin 31 pg (28-32); Mean Corpuscular Volume 94 fl (79-97); Monocytes # (Auto) 0.5 K/mm3 (0.0-0.8); Monocytes % (Auto) 12.6 % (0.0-7.3); Platelet Count 113 K/mm3 (140-440); Red Blood Count 3.89 M/mm3 (3.65-5.03); Red Cell Distribution Width 15.1 % (13.2-15.2)
[2017-10-16 04:55] LABS: BUN/Creatinine Ratio 4; Blood Urea Nitrogen 45 mg/dL (7-17); Calcium 7.8 mg/dL (8.4-10.2); Hemolysis Index 6
--- NOTE | 2017-10-16 05:01 | XRay Report ---
FINAL REPORT PROCEDURE: XR CHEST ROUTINE 2V TECHNIQUE: PA and lateral chest radiographs were obtained. CPT 35653 HISTORY: Shortness of breath COMPARISON: No prior studies are available for comparison. FINDINGS: Heart: Normal. Mediastinum/Vessels: Normal. Lungs/Pleural space: Normal. Bony thorax: No acute osseous abnormality. Other: There is a right central catheter with the tip in the SVC IMPRESSION: There is no evidence of an acute cardiopulmonary process..
== END 2017-10-16 08:45 | disposition left against medical advice (07) ==
LOC: ED 02:51
DX: J00 Acute nasopharyngitis [common cold] (principal); R09.81 Nasal congestion; R05 Cough; R06.2 Wheezing; Z53.21 Procedure and treatment not carried out due to patient leaving prior to being seen by health care provider
CPT/HCPCS: 36415; 71046; 80048; 84484; 85025; 93005; 93010

== ENCOUNTER 2017-11-07 06:37 | Day surgery (SDC) | payer MEDICARE ==
[~2017-11-07 06:37] MED LIST changes: +ANCEF/STERILE WATER 2 GM/20 ML 2 GM/20 ML SYRINGE IV NR; -VANCOMYCIN/NS 1 GM/250 ML 1 GM/250 ML BAG IV NR
[2017-11-07] MEDS ORDERED: NACL BACTERIOSTATIC INFILTRATI ONE (07:13)
[2017-11-07] MEDS ORDERED: MARCAINE 0.5% 30 ML INFILTRATI ONE (07:20)
[2017-11-07] MEDS ORDERED: HEPARIN 10,000 UNITS/10 ML ONE (07:20)
[2017-11-07] MEDS ORDERED: THROMBIN (BOVINE) TP ONE ×2 (07:21→09:35)
[2017-11-07] MEDS ORDERED: NACL 0.9% 500 ML 500 ML ONE (07:21)
[2017-11-07] MEDS ORDERED: RIFADIN ONE (07:21)
[2017-11-07] MEDS ORDERED: GELFOAM TP ONE ×2 (07:21→09:35)
[2017-11-07] MEDS ORDERED: DILAUDID ONE ×2 (07:25→09:28)
[2017-11-07] MEDS ORDERED: DIPRIVAN 10 MG/ML IV ONE ×3 (07:25→09:17)
[2017-11-07] MEDS ORDERED: XYLOCAINE MPF 2% ONE (07:25)
[2017-11-07] MEDS ORDERED: NEO SYNEPHRINE ONE ×2 (07:26→07:27)
[2017-11-07 07:39] LABS: Basophils % (Auto) 0.8 % (0.0-1.8); Hematocrit 36.6 % (30.3-42.9); Hemoglobin 12.2 gm/dl (10.1-14.3); Lymphocytes # (Auto) 1.5 K/mm3 (1.2-5.4); Lymphocytes % (Auto) 30.5 % (13.4-35.0); Mean Corpuscular HGB Conc 33 % (30-34); Mean Corpuscular Hemoglobin 31 pg (28-32); Mean Corpuscular Volume 94 fl (79-97); Monocytes # (Auto) 0.5 K/mm3 (0.0-0.8); Monocytes % (Auto) 9.8 % (0.0-7.3); Platelet Count 172 K/mm3 (140-440); Red Blood Count 3.87 M/mm3 (3.65-5.03); Red Cell Distribution Width 15.1 % (13.2-15.2)
[2017-11-07] MEDS ORDERED: VANCOMYCIN/NS 1 GM/250 ML 1 GM/250 ML BAG IV SCH (07:54)
[2017-11-07 07:56] LABS: Calcium 9.2 mg/dL (8.4-10.2)
[2017-11-07] MEDS ORDERED: VANCOMYCIN PHARMACY TO DOSE IV SCH (08:00)
--- NOTE | 2017-11-07 08:06 | Anesthesia Consultation ---
Anesthesia Consult and Med Hx Date of service: 11/07/17 - Airway Anesthetic Teeth Evaluation: Good ROM Head & Neck: Adequate Mental/Hyoid Distance: Adequate Mallampati Class: Class II Intubation Access Assessment: Probably Good - Pulmonary Exam CTA: Yes - Cardiac Exam Cardiac Exam: RRR - Pre-Operative Health Status ASA Pre-Surgery Classification: ASA4 - Pulmonary Hx Smoking: Yes Hx Asthma: Yes COPD: No Hx Pneumonia: No Hx Sleep Apnea: Yes (No CPAP) - Cardiovascular System Hx Hypertension: Yes Hx Percutaneous Transluminal Coronary Angioplasty (PTCA): No Hx Pacemaker: No Hx Internal Defibrillator: No Hx Valvular Heart Disease: No Hx Peripheral Vascular Disease: No - Central Nervous System Hx Seizures: Yes Hx Psychiatric Problems: No - Endocrine Hx End Stage Renal Disease: Yes - Hematic Hx Anemia: Yes - Other Systems Hx Alcohol Use: Yes (occas) Hx Cancer: No
--- NOTE | 2017-11-07 08:07 | Anesthesia Day of Surgery ---
Anesthesia Day of Surgery - Day of Surgery Patient Examined: Yes Patient H&P Reviewed: Yes Patient is NPO: Yes Beta Blockers: No Cardiac Clearance: No Pulmonary Clearance: No
[2017-11-07] MEDS ORDERED: NACL 0.9% 1000 ML 1,000 ML IV SCH (09:00)
[2017-11-07] MEDS ORDERED: ePHEDrine 50 MG/5 ML-0.9% NACL IV ONE (09:12)
[2017-11-07] MEDS ORDERED: VERSED ONE (09:17)
[2017-11-07] MEDS ORDERED: NACL 0.9% IR ONE (09:29)
[2017-11-07] MEDS ORDERED: MARCAINE 0.5% INFILTRATI ONE (09:29)
[2017-11-07] MEDS ORDERED: HEPARIN 10,000 UNITS/10 ML 2,000 UNIT in NACL 0.9% 500 ML 500 ML IR ONE (09:34)
[2017-11-07] MEDS ORDERED: BREVIBLOC IV ONE (09:35)
[2017-11-07] MEDS ORDERED: ZOFRAN ONE (10:34)
--- NOTE | 2017-11-07 11:35 | Short Stay Summary ---
Short Stay Documentation Date of service: 11/07/17 - History H&P: obtained from office - Allergies and Medications Current Medications: Allergies cefazolin sodium [From Anc] Allergy (Verified 11/03/17 15:51) Hives morphine Allergy (Verified 11/03/17 15:51) Hives contrast dye Allergy (Uncoded 11/03/17 15:52) Anaphylaxis Home Medications Medication Instructions Recorded Confirmed Last Taken Type Calcium Acetate [Phoslo] 2,001 mg PO TID 04/02/17 11/07/17 11/06/17 History Carvedilol [Coreg] 25 mg PO BID 04/02/17 11/07/17 11/06/17 History Ranitidine HCl [Acid Anode Worker] 75 mg PO QHS 04/02/17 11/07/17 11/06/17 History levETIRAcetam [Keppra TAB] 500 mg PO BID #60 tablet 04/05/17 11/03/17 11/07/17 05:05 Rx Calcium Carbonate [Tums] 1,000 mg PO QDAY 07/26/17 11/07/17 11/04/17 History HYDROcodone/APAP 5-325 [[place] 1 each PO Q6HR PRN #30 tablet 07/26/17 11/07/17 3 Months Ago Rx 5/325] ~08/08/17 Active Medications Vancomycin HCl (Vancomycin/Ns 1 Gm/250 Ml) 1 gm in 250 mls @ 167.007 mls/hr IV PREOP ASHLEY; Protocol Stop: 11/07/17 23:59 Last Admin: 11/07/17 08:16 Dose: 167.007 mls/hr Sodium Chloride (Nacl 0.9% 1000 Ml) 1,000 mls @ 42 mls/hr IV DIRECT ASHLEY Last Admin: 11/07/17 07:15 Dose: 42 mls/hr - Brief post op/procedure progress note Date of procedure: 11/07/17 Pre-op diagnosis: failing RUE AVF Post-op diagnosis: same Procedure: elevation of RUE upper arm AVF by basilic vein transposition Anesthesia: GETA, local (1/2% Marcaine plain) Findings: excellent thrill and 2+ right radial pulse at the end of the case Surgeon: ETIENNE UNDERWOOD Estimated blood loss: other (150 ML) Pathology: none Condition: stable - Hospital course Hospital course: benign - Disposition Condition at discharge: Good Disposition: DC-01 TO HOME OR SELFCARE Short Stay Discharge Plan Activity: advance as tolerated Diet: advance as tolerated Wound: per your surgeon's advice Follow up with: ETIENNE UNDERWOOD MD [Staff Physician] - 14 Days Prescriptions: HYDROcodone/APAP 5-325 [[place] 5/325] 1 each PO Q6HR PRN #30 tablet PRN Reason: Pain
[2017-11-07] MEDS ORDERED: NORCO 5/325 PO PRN (11:51)
--- NOTE | 2017-11-07 13:19 | Operative Report ---
Operative Report Operative Report: Date of procedure: 11/07/2017 Pre-operative diagnosis: Failing arteriovenous fistula right upper extremity Post-operative diagnosis: Same Procedure name(s): Creation of right upper extremity arteriovenous fistula by upper arm basilic vein transposition Surgeon: Eh Robles MD Diamond Sizer: None Anesthesia: Gen. with local supplementation EBL: 150 mL Operative indication: Patient is a 42-year-old woman with end-stage renal failure. There is a maturing basilic vein fistula in the right upper extremity. This requires elevation for use. Findings: Excellent thrill in the fistula the end of the procedure. Easily palpable right radial pulse at the end of the procedure. Procedure: The patient was placed on the table in the supine position. General anesthesia was given. The area over the right arm was prepped with ChloraPrep solution and draped in the usual sterile fashion. Ultrasound guidance was used to identify the location of the basilic vein. The area around the incision site was infiltrated with half percent Marcaine plain. A linear incision was made along the medial portion of the upper arm over the basilic vein. Dissection was carried out to identify the vein. All nerve structures were spared. All branches of the fistula were taken down with clips and 3-0 silk ties. A subcutaneous tunnel was made on the anterior surface of the upper arm. The tunnel was infiltrated with half percent Marcaine plain. Patient was heparinized with 2000 units of intravenous heparin. The vein was occluded near the arterial anastomosis. The vein was divided and hydrodilated with heparinized saline. The vein was then tunneled through the subcutaneous tunnel and redilated with heparinized saline to prevent any kinks or twisting in the fistula. An end to end anastomosis was created in a beveled fashion between the 2 ends of the vein at the arterial side of the fistula using 6-0 Prolene. The fistula was flushed and vented to remove any air or debris and then flow was started into the fistula with the development of an immediate and excellent thrill over the entire body of the fistula in the upper arm. Meticulous hemostasis was obtained. Closure was done with 3-0 Vicryl on the subcutaneous tissue. 4-0 subcuticular Monocryl was used to close the skin. Sterile dressings were applied. Sponge, needle, and instrument counts were reported as correct. The patient tolerated the procedure well and left the operating room with an easily palpable right radial pulse and an easily palpable thrill in the arteriovenous fistula.
[2017-11-07 13:25] VITALS: BP 176/83
== END 2017-11-07 12:58 | disposition home or self-care (01) ==
LOC: OR 06:37
PROVIDERS: ATTEND Surgery Vascular Surgery
DX: T82.590A Other mechanical complication of surgically created arteriovenous fistula, initial encounter (principal); I12.0 Hypertensive chronic kidney disease with stage 5 chronic kidney disease or end stage renal disease; N18.6 End stage renal disease; J45.909 Unspecified asthma, uncomplicated; G47.30 Sleep apnea, unspecified; F17.200 Nicotine dependence, unspecified, uncomplicated; Y83.2 Surgical operation with anastomosis, bypass or graft as the cause of abnormal reaction of the patient, or of later complication, without mention of misadventure at the time of the procedure; Z88.1 Allergy status to other antibiotic agents; Z88.5 Allergy status to narcotic agent
CPT/HCPCS: 36415; 36832; 80048; 84132; 84703; 85025; A4649; J1170; J1644; J2250; J2370; J2405; J2704; J3370; J7030; J7040; J3490

== ENCOUNTER 2017-12-22 07:44 | Day surgery (SDC) | payer MEDICARE ==
[~2017-12-22 07:44] MED LIST changes: -ANCEF/STERILE WATER 2 GM/20 ML 2 GM/20 ML SYRINGE IV NR; +LACTATED RINGERS 1,000 ML IV SCH; -NACL 0.9% 1000 ML 1,000 ML IV SCH; +VANCOMYCIN/NS 1 GM/250 ML 1 GM/250 ML BAG IV NR
[2017-12-22] MEDS ORDERED: XYLOCAINE 1% 20 mL ONE (08:56)
[2017-12-22] MEDS ORDERED: DIPRIVAN 10 MG/ML IV ONE (08:59)
[2017-12-22] MEDS ORDERED: DILAUDID ONE (09:00)
[2017-12-22] MEDS ORDERED: NACL 0.9% 1000 ML 1,000 ML IV SCH (09:00)
[2017-12-22 09:27] LABS: Calcium 9.2 mg/dL (8.4-10.2)
--- NOTE | 2017-12-22 09:41 | Anesthesia Consultation ---
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
[2017-12-22] MEDS ORDERED: MARCAINE 0.5% INFILTRATI ONE (10:33)
[2017-12-22] MEDS ORDERED: XYLOCAINE 1% 20 mL INFILTRATI ONE (10:34)
[2017-12-22] MEDS ORDERED: NACL 0.9% IR ONE (10:34)
--- NOTE | 2017-12-22 11:58 | Short Stay Summary ---
Short Stay Documentation Date of service: 12/22/17 Narrative H&P: See H&P - History H&P: obtained from office - Allergies and Medications Current Medications: Allergies cefazolin sodium [From Anc] Allergy (Verified 12/21/17 16:56) Hives morphine Allergy (Verified 12/21/17 16:56) Hives contrast dye Allergy (Uncoded 12/21/17 16:56) Anaphylaxis Home Medications Medication Instructions Recorded Confirmed Last Taken Type Calcium Acetate [Phoslo] 2,001 mg PO TID 04/02/17 12/22/17 12/21/17 21:00 History Carvedilol [Coreg] 25 mg PO BID 04/02/17 12/22/17 12/22/17 06:00 History Ranitidine HCl [Acid Machine Repairer Maintenance] 75 mg PO QHS 04/02/17 12/22/17 12/21/17 21:00 History levETIRAcetam [Keppra TAB] 500 mg PO BID #60 tablet 04/05/17 12/22/17 12/22/17 06:00 Rx Calcium Carbonate [Tums] 1,000 mg PO QDAY 07/26/17 12/22/17 12/21/17 21:00 History B Complex 11/Folic/C/Biot/Zinc 1 each PO DAILY 12/21/17 12/22/17 12/21/17 21:00 History [Dialyvite with Zinc Tablet] Active Medications Vancomycin HCl (Vancomycin/Ns 1 Gm/250 Ml) 1 gm in 250 mls @ 166.667 mls/hr IV PREOP NR; Protocol Stop: 12/22/17 23:59 Sodium Chloride (Nacl 0.9% 1000 Ml) 1,000 mls @ 75 mls/hr IV DIRECT ASHLEY - Brief post op/procedure progress note Date of procedure: 12/22/17 Pre-op diagnosis: Complications of Dialysis Access Post-op diagnosis: same Procedure: 1. Incision and Drainage of Postoperative Right Arm Hematoma 2. Placement of 10 Flat JAZLYN Drain Anesthesia: KAYLA Surgeon: RADHA VELAZQUEZ Estimated blood loss: minimal Pathology: list (right arm hematoma) Specimen disposition: discarded Condition: stable - Disposition Condition at discharge: Good Disposition: DC-01 TO HOME OR SELFCARE Short Stay Discharge Plan Activity: other (No heavy lifiting with right arm) Wound: open to air, keep clean and dry, drain care as instructed, other (okay to wash the wound with soap and water but do not soak in water) Follow up with: RADHA VELAZQUEZ MD [Staff Physician] - 14 Days Prescriptions: HYDROcodone/APAP 7.5-325 [[place] 7.5/325] 1 each PO Q6HR PRN #40 tablet PRN Reason: Pain
--- NOTE | 2017-12-22 12:05 | Operative Report ---
Operative Report Operative Report: Date of Procedure: 12/22/2017 Pre-operative Diagnosis: Complications of Dialysis Access Post-operative Diagnosis: Same Procedure(s): 1. Incision and Drainage of Postoperative Right Arm Hematoma 2. Placement of 10 Flat JAZLYN Drain Surgeon: Keven Barragan M.D. Customer Service Administrator: None Anesthesia: Gen. Endotracheal Anesthesia EBL: Minimal Counts: Correct Complications: None Condition: Stable Findings: Liquefied and solid hematoma within the space of the dissection for the transposition of the basilic vein arteriovenous fistula. There was no evidence of active bleeding. Specimen: Hematoma was discarded. Indication: The patient is a 42-year-old female who underwent revision with elevation of a right arm basilic vein arteriovenous fistula. Postoperatively she developed a hematoma that has not resolved over the past 4 weeks. She has had significant discomfort and returns for incision and drainage of the hematoma. She was given the risk, benefits, and alternative procedures and has consented to the procedure. Description of Procedure: The patient was brought to the operating room and laid in supine position. After general endotracheal anesthesia was achieved her right arm was prepped and draped in normal sterile fashion. A longitudinal incision was created through her previous incision, near the axilla and carried down through the soft tissue using cautery. Upon opening the incision a significant amount of liquefied hematoma was encountered. This was suctioned using a Yankauer. Once this was removed the hematoma was initially decompressed. Of note there was approximately 300 mL of liquefied hematoma removed. Upon removing that I continued to open the incision and then removed approximately 100 mL of solid hematoma. A copiously irrigated the pocket and then explored the pocket to ensure that there was no area of active bleeding. I did not identify any areas of active bleeding. I used cautery to score the surface of the pocket to prevent continued drainage from the surface, as it would be difficult to strip the entire lining of this pocket due to the fact that the fistula was coursing through the pocket. Once I had scored the surface I made a small incision on the lower medial aspect of the arm, with an 11 blade, and pulled a 10 flat JAZLYN drain through the incision and placed within the pocket. I secured this to the skin with a 2-0 Ethilon. I cut the catheter to length and then closed the incision in 2 layers using a 3-0 Vicryl in running fashion in the deep dermal layers and a 4-0 Monocryl in running fashion and the subcuticular layer and then dressed the skin with Dermabond. The JAZLYN drain was then connected to bulb suction which held adequate suction. The patient tolerated the procedure well. All sponge, needle, and his treatment counts were correct. The patient was taken to the recovery area in stable condition.
[2017-12-22 16:58] VITALS: BP 177/83
== END 2017-12-22 13:18 | disposition home or self-care (01) ==
LOC: OR 07:44
PROVIDERS: ATTEND Surgery Vascular Surgery
DX: T82.898A Other specified complication of vascular prosthetic devices, implants and grafts, initial encounter (principal); L76.32 Postprocedural hematoma of skin and subcutaneous tissue following other procedure; I12.0 Hypertensive chronic kidney disease with stage 5 chronic kidney disease or end stage renal disease; N18.6 End stage renal disease; G43.909 Migraine, unspecified, not intractable, without status migrainosus; K21.9 Gastro-esophageal reflux disease without esophagitis; G47.30 Sleep apnea, unspecified; J45.909 Unspecified asthma, uncomplicated; G51.0 Bell's palsy; D64.9 Anemia, unspecified; Z79.899 Other long term (current) drug therapy; Z88.5 Allergy status to narcotic agent; Z88.1 Allergy status to other antibiotic agents; Z91.041 Radiographic dye allergy status; Z72.89 Other problems related to lifestyle; Z98.51 Tubal ligation status; Z94.0 Kidney transplant status; Z90.49 Acquired absence of other specified parts of digestive tract; Z87.891 Personal history of nicotine dependence; Y83.2 Surgical operation with anastomosis, bypass or graft as the cause of abnormal reaction of the patient, or of later complication, without mention of misadventure at the time of the procedure
CPT/HCPCS: 10140; 36415; 80048; J1170; J2704; J3370; J7120